=== PATIENT | male | born 1965 | race Caucasian/White ===

== ENCOUNTER 2021-02-05 08:14 | Emergency (ER) | payer MEDICARE, SELFPAY ==
[2021-02-05 08:27] VITALS: BP 129/80; PULSE 87; RESP 19; TEMP 38.3; O2SAT 94; BMI 30.8
[2021-02-05 08:33] VITALS: BP 129/80; PULSE 84; RESP 19; TEMP 38.3; O2SAT 95
--- NOTE | 2021-02-05 08:47 | ED_ITS ---
HPI - URI/Sore Throat General: Chief Complaint: Fever Stated Complaint: sinus problems Time Seen by Provider: 02/05/21 08:15 History of Present Illness: HPI Narrative: Patient complains about sinus pressure intermittent fever headache. Denies body aches cough loss of taste or smell. Has had an intermittent sore throat also. Has history of sinus infections and also receives allergy shots and weekly basis. Patient also has nausea. Patient has not been vaccinated to Covid. MD elicited complaint: fever, nasal congestion and sinus pain Pertinent past history: seasonal allergies Onset (ago): day(s) Consistency: constant and progressively worsening Severity: moderate Description of mucous: yellow Exacerbating factors: leaning forward Relieving factors: nothing Associated symptoms: Reports no associated symptoms, ear or mastoid pain, fever(s), nasal congestion and sinus pain; Deny abdominal pain, chills, chest pain, headache(s), nausea or vomiting Review of Systems Const: Reports: fever(s); Denies: chills or body aches Eyes: Denies: change in vision or blurry vision ENMT: Reports: throat pain, ear or mastoid pain, nasal congestion and sinus pain Card: Denies: chest pain or dyspnea on exertion Resp: Denies: dyspnea, productive cough or non-productive cough GI: Denies: abdominal pain, nausea or vomiting : Denies: difficulty urinating Musc: Denies: extremity pain Skin/Breast: Denies: rash Neuro: Denies: headache(s) Psych: Denies: anxiety or depression David/Lymph: Denies: easy bruising Physical Exam Const: COMMON NORMALS: no acute distress, average body habitus and patient oriented x3 HENMT: COMMON NORMALS: normocephalic HEAD & SCALP: normal to inspection and normocephalic FACE & SINUS: sinus tenderness maxillary THROAT: posterior oropharynx abnormal erythema Eye: COMMON NORMALS: conjunctivae normal GENERAL EYE: appearance normal, both eyes and all related structures CONJUNCTIVA: Yes conjunctivae normal Neck/C-Spine: COMMON NORMALS: no JVD Chest: COMMONS NORMALS: normal inspection of the chest Resp: COMMON NORMALS: normal respiratory effort and clear to auscultation bilaterally AUSCULTATION: clear to auscultation bilaterally Cardio: COMMON NORMALS: no JVD, regular rate and regular rhythm RATE: regular rate RHYTHM: regular rhythm GI: COMMON NORMALS: Normal to inspection, nondistended, normoactive bowel sounds present Extremity: COMMON NORMALS: normal to inspection and full ROM Neuro: COMMON NORMALS: patient oriented x3 Course Vital Signs: Vital signs: Vital Signs Temperature 100.5 F H 02/05/21 09:56 Pulse Rate 84 02/05/21 09:56 Respiratory Rate 19 H 02/05/21 09:56 Blood Pressure 125/80 02/05/21 09:56 Pulse Oximetry 94 02/05/21 09:56 MDM - URI/Sore Throat MDM Narrative: Medical decision making narrative: Patient positive for Covid. Patient appears to be toward the end of his symptoms been 9 days. Patient follow-up primary care provider as needed antibiotics started because of history of sinus infections may be complicating his Covid infection. Dexamethasone help with symptom control. Lab Data: Labs: Lab Results 02/05/21 02/05/21 Range/Units 08:43 08:57 WBC 3.4 L (4.0-10.0) 10^3/ uL RBC 5.17 (4.1-5.3) 10^6/u L Hgb 16.7 H (11.7-16.6) g/dL Hct 46.4 (42.0-52.0) % MCV 89.7 (80-94) fL MCH 32.3 (28.0-34.0) pg MCHC 36.0 (30.0-36.0) g/dL RDW 12.1 (12.1-15.1) % Plt Count 72 L (130-400) 10^3/c mm MPV 13.2 H (7.4-10.4) fL Neut % (Auto) 60.4 % Lymph % (Auto) 28.5 % Lake % (Auto) 10.2 % Eos % (Auto) 0.3 % Baso % (Auto) 0.0 % Neut # (Auto) 2.08 (1.8-7.7) 10^3/u L Lymph # (Auto) 1.0 (0.8-4.8) 10^3/u L Lake # (Auto) 0.4 (0.2-0.9) 10^3/u L Eos # (Auto) 0.0 (0.0-0.8) 10^3/u L Baso # (Auto) 0.0 (0.0-0.1) 10^3/u L Nucleated RBC % (a uto) 0 % Nucleated RBCs # 0.0 /100WBC SARS-CoV-2 Ag (Rap id) Positive H (Negative) Discharge Plan Discharge Patient Disposition: Home Clinical Impression: COVID-19 Condition: Stable Prescriptions: New Decadron 6 mg tablet 6 mg PO DAILY Qty: 7 RF: 0 Zithromax Z-Lew 250 mg tablet See Rx Instructions PO .COMPLEX Qty: 6 RF: 0 Zofran 4 mg tablet 4 mg PO Q8H 3 Days Qty: 9 RF: 0 No Action hydrocodone-acetaminophen 5-325 mg Tablet 1 tab PO Q6H PRN (Reason: Pain) RF: 0 Discharge Orders: Discharge ED (Routine); Ordered 02/05/21 Ordered By: Sammy Conley Referrals: Leeroy Olivarez FNP [Primary Care Provider] - Discharge Diet: Advance as tolerated Discharge Activity: Increase activity as tolerated Patient Instructions: Viral Syndrome (ED) Activity Restrictions/Additional Instructions: Follow-up with medical provider as directed. Take medications as prescribed. Return to the ER or your medical provider if condition worsens. Please read and understand discharge instructions. If any questions ask please. Quarantine for at least 3 more days. Coding Level of Care Code ED Program Manufacturing Leader for Sheryl Fwdevon Exam Comprehensive
[2021-02-05] MEDS: acetaminophen 500 mg Tablet 1000 MG PO (08:59)
[2021-02-05 09:27] LABS: Eosinophils % 0.3 %; Hematocrit 46.4 % (42.0-52.0); Hemoglobin 16.7 g/dL (11.7-16.6); Lymphocytes % 28.5 %; Mean Corpuscular Hemoglobin 32.3 pg (28.0-34.0); Mean Corpuscular Volume 89.7 fL (80-94); Mean Platelet Volume 13.2 fL (7.4-10.4); Monocytes # 0.4 10^3/uL (0.2-0.9); Monocytes % 10.2 %; Neutrophils # 2.08 10^3/uL (1.8-7.7); Neutrophils % 60.4 %; Nucleated Red Blood Cells % 0 %; Platelet Count 72 10^3/cmm (130-400); Red Blood Count 5.17 10^6/uL (4.1-5.3); Red Cell Distribution Width 12.1 % (12.1-15.1); White Blood Count 3.4 10^3/uL (4.0-10.0)
[2021-02-05 09:33] VITALS: BP 125/80; PULSE 93; RESP 19; TEMP 38.1; O2SAT 94
[2021-02-05 09:41] LABS: SARS Covid-2 Antigen Positive (Negative)
[2021-02-05 09:56] VITALS: BP 125/80; PULSE 84; RESP 19; TEMP 38.1; O2SAT 94
[2021-02-05 10:41] LABS: Slide Review Slide Review Perform
== END 2021-02-05 10:08 | disposition home or self-care (01) ==
PROVIDERS: Emergency Provider Nurse Practitioner Family; PCP Registered Nurse
DX: U07.1 COVID-19 (principal)
CPT/HCPCS: 85025; 87426; 99283

== ENCOUNTER 2025-04-09 16:36 | Observation (INO) | payer MEDICARE, SELFPAY ==
--- OUTSIDE RECORDS SUMMARY | 2025-04-09 09:56 | XMS_ITS | Encounter Summary ---
Author Organization [facility] Address [address] [place] [address] Care Team Providers Care Rabbler Name Role Phone Unavailable Primary Care Provider Unavailabl e Reason for Visit * Reason Comments Chest Pain Encounter Details Date Type Department Care Team (Late st Contact Info) Description 04/09/2025 9:56 AM CDT - 04/09/2025 3:56 PM CDT Emergency [facility] Emergency Medicine [address] [phone] Rivka Sheppard MD [address] [phone] NSTEMI (non-ST elevated myocardial infarction) ([facility]) (Primary Dx) Discharge Disposition: Left Against Medical Advice Social History Tobacco Use Types Packs/Day Years Used Date Smoking Tobacco: Never Smokeless Tobacco: Never Tobacco Cessation:Counseling Given: Not Answered Alcohol Use Standard Drinks/Week Comments Yes 1 (1 standard drink = 0.6 oz pur e alcohol) Feeling Safe Answer Date Recorded Are you in a relationship wi th someone who hurts you emotionally and/or physically? 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 Gender Identity Not on file Sexual Orientation Not on file documented as of this encounter Last Filed Vital Signs Vital Sign Reading Time Taken Comments Blood Pressure 161/89 04/09/2025 3:30 PM CDT Pulse 62 04/09/2025 3:30 PM CDT Temperature 36.3 C (97.4 F) 04/09/2025 9:57 AM CDT Respiratory Rate 13 04/09/2025 3:30 PM CDT Oxygen Saturation 100% 04/09/2025 3:30 PM CDT Inhaled Oxygen Concentration - - Weight 88.2 kg (194 lb 6.4 oz) 04/09/2025 9:57 A M CDT Height 177.8 cm (5' 10 ) 04/09/2025 9:57 AM CDT Body Mass Index 27.89 04/09/2025 9:57 AM CDT documented in this encounter ED Notes * Savannah Mayer RN - 04/09/2025 3:59 PM CDT Patient requested to leave this ER and drive himself to [facility] himself. This RN voiced understanding and educated the patient on the risk of leaving AMA. Patient states he understood the risk but was tired of the wait and it ws ridiculous. This RN voiced understanding and removed the patiens IV. Dr Sheppard informed of patients decision. Dispatch called and canceled transfer. CSU at [facility] called and updated nurses on patient event. * Delma Montalvo RN - 04/09/2025 2:04 PM CDT Dispatch called at this time for transfer. * Dahlia Yu RCP - 04/09/2025 12:23 PM CDT EKG completed. Results given to Dr. Sheppard and scanned into Epic. * Savannah Mayer RN - 04/09/2025 10:24 AM CDT Patient arrived to the ED via private vehicle complaining of chest tightness that radiates to hi back. Patient states he was relaxing at home and felt fine and decided to get up and move a large ladder and his chest pain hit him. Patient states he thinks he has congestion causing the issue and the pain increases with movement. Patient states the pain started 3 hours ago and his dad had a history of heart attacks and just wanted to get looked at. * Dahlia Yu RCP - 04/09/2025 9:58 AM CDT EKG completed. Results given to Dr. Sheppard and scanned into Epic. * Rivka Sheppard MD - 04/09/2025 9:55 AM CDTAssociated Order(s): EKG 12-LEAD; EKG 12-LEAD 04/09/25 12:00 PM HISTORY OF PRESENT ILLNESS History of Present Illness This is a male with a history of neck surgery presenting with chest tightness. The patient reports experiencing chest tightness that radiates to his back, which he initially attributed to congestion. The onset of these symptoms was sudden, occurring a few hours ago, and they have not been previously experienced. He also mentions mild shortness of breath and sweating when lifting a ladder. He is not currently experiencing any chest pressure but reports a sensation of tightness. He has no history of heart issues. He has a history of sinus infections, for which he takes Tylenol, and varicose veins, which were treated but persist. He has no recent injuries or bruising and does not bruise easily. He has not fallen in the past week. He occasionally takes hydrocodone for severe pain. PAST SURGICAL HISTORY: Neck surgery Knee injury (not surgically repaired) SOCIAL HISTORY He drinks beer almost every day. He does not smoke, use drugs, vape, or chew tobacco. FAMILY HISTORY His father had a history of three heart attacks. PAST MEDICAL HISTORY REVIEWED MEDICAL: Patient has a past medical history of Cervical spine fracture ([facility]). SURGICAL: Patient has a past surgical history that includes cervical spine surgery. ALLERGIES Patient has no known allergies. PHYSICAL EXAM INITIAL VS BP: (!) 188/93 (04/09/25 09), Heart Rate: 85 bpm (04/09/25 09), Resp: 20 (04/09/25956), Pulse: 75 (04/09/25 1045), Temp: 97.4 ??F (36.3 ??C) (04/09/25956), Temp src: Temporal (04/09/25956),SpO2: 99 % (04/09/25956), Height: 5' 10 (177.8 cm) (04/09/25956), Weight: 88.2 kg (194 lb 6.4 oz) (04/09/25956), BMI (Calculated): (!) 27.9 (04/09/25956) No LMP for male patient. Blood pressure (!) 170/90, pulse 65, temperature 97.4 ??F (36.3 ??C), temperature source Temporal, resp. rate 17, height 5' 10 (1.778 m), weight 88.2 kg (194 lb 6.4 oz), SpO2 99%. Physical Exam Vitals and nursing note reviewed. Constitutional: General: He is in acute distress. Appearance: Normal appearance. He is well-developed and normal weight. He is ill-appearing. HENT: Head: Normocephalic. Mouth/Throat: Mouth: Mucous membranes are moist. Eyes: Extraocular Movements: Extraocular movements intact. Conjunctiva/sclera: Conjunctivae normal. Pupils: Pupils are equal, round, and reactive to light. Neck: Vascular: No JVD. Cardiovascular: Rate and Rhythm: Normal rate and regular rhythm. Pulses: Normal pulses. Radial pulses are 2+ on the right side and 2+ on the left side. Heart sounds: Normal heart sounds. No murmur heard. Pulmonary: Effort: Pulmonary effort is normal. No respiratory distress. Breath sounds: Normal breath sounds. No wheezing or rhonchi. Chest: Chest wall: No tenderness. Abdominal: Palpations: Abdomen is soft. Musculoskeletal: General: Normal range of motion. Cervical back: Normal range of motion and neck supple. Right lower leg: No tenderness. No edema. Left lower leg: No tenderness. No edema. Lymphadenopathy: Cervical: No cervical adenopathy. Skin: General: Skin is warm and dry. Capillary Refill: Capillary refill takes less than 2 seconds. Coloration: Skin is not cyanotic or pale. Findings: No erythema. Neurological: General: No focal deficit present. Mental Status: He is alert and oriented to person, place, and time. Mental status is at baseline. Cranial Nerves: No cranial nerve deficit. Psychiatric: Mood and Affect: Mood normal. Behavior: Behavior normal. DIAGNOSTICS LAB: CBC WITH DIFFERENTIAL - Abnormal Result Value WBC 6.7 RBC 4.61 (*) HEMOGLOBIN 14.8 HEMATOCRIT 42.1 MCV 91.3 MCH 32.1 MCHC 35.2 RDW 12.5 RDW-STDEV 41.8 PLATELETS 142 MPV 10.6 NEUTROPHILS 62 LYMPHOCYTES 25 MONOCYTES 11 EOSINOPHILS 2 BASOPHILS 1 IMMATURE GRANULOCYTES 0 NEUTROPHIL ABSOLUTE 4.12 LYMPHOCYTE ABSOLUTE 1.64 MONOCYTE ABSOLUTE 0.71 EOSINOPHIL ABSOLUTE 0.13 BASOPHILS ABSOLUTE 0.06 IMMATURE GRANULOCYTES ABSOLUTE 0.03 D-DIMER - Abnormal D-DIMER QUANT 0.91 (*) COMPREHENSIVE METABOLIC PANEL - Abnormal SODIUM 139 POTASSIUM 3.9 CHLORIDE 101 CO2 25 CALCIUM 9.7 BUN 16 CREATININE 0.85 GLUCOSE 137 (*) TOTAL PROTEIN 7.7 ALBUMIN 4.6 BILIRUBIN TOTAL 0.8 ALKALINE PHOSPHATASE 81 AST 78 (*) ALT 77 (*) GFR >60 ANION GAP 13 TROPONIN 2 HR, 5TH GEN - Abnormal TROPONIN T, 2 HR 5TH GEN 28 (*) DELTA 2HR TROPONIN T 15 (*) PROTIME-INR - Normal PROTIME 13.1 INR 1.0 SEDIMENTATION RATE - Normal ESR (SEDIMENTATION RATE) 6 BRAIN NATRIURETIC PEPTIDE, BNP OR PROBNP - Normal PROBNP, N TERMINAL 95 LIPASE - Normal LIPASE 60 LACTIC ACID - Normal LACTIC ACID 1.3 C-REACTIVE PROTEIN - Normal CRP <3.0 MAGNESIUM LEVEL - Normal MAGNESIUM 2.0 TSH - Normal TSH 1.96 TROPONIN BASELINE, 5TH GEN - Normal TROPONIN T, BASELINE 5TH GEN 13 URINALYSIS WITH REFLEX MICROSCOPIC DRUG SCREEN, URINE CBC WITHOUT DIFFERENTIAL RADIOLOGY: XR CHEST PA OR AP 1 VW Radiologist Impression IMPRESSION: Please see below. Exam: XR CHEST PA OR AP 1 VW Date/Time of Exam: 04/09/2025 10:28 AM Reason For Exam: Chest Pain. Diagnosis: See Reason for Exam. Comparison: None Findings: The heart size is normal. The lungs are clear. No pleural fluid or pneumothorax. No acute osseous abnormality. IMPRESSION: 1. No infiltrates. EKG: Results Laboratory Studies Blood test showed slight elevation. Liver function tests indicate some inflammation. D-dimer test was elevated. Imaging Chest x-ray showed normal heart size, clear lungs, no fluid around the lungs, and no abnormality inthe bones of the chest. Testing EKG showed abnormalities. Results independently interpreted by Rivka Sheppard MD PROCEDURES EKG 12-LEAD Date/Time: 04/09/2025 9:58 AM Performed by: Rivka Sheppard MD Authorized by: Rivka Sheppard MD ECG interpreted by ED Physician in the absence of a plaster patternmaker: yes Rate: ECG rate: 82 ECG rate assessment: age appropriate Rhythm: Rhythm Origin: sinus Ectopy: Ectopy occurance: occasional Ectopy origin: PVCs Willard: QRS axis: Left Intervals: normal QRSTT: QRSTT changes: Yes Comments: T wave inversion in lead III. No ST segment elevation/depression. EKG 12-LEAD Date/Time: 04/09/2025 12:23 PM Performed by: Rivka Sheppard MD Authorized by: Rivka Sheppard MD ECG interpreted by ED Physician in the absence of a plaster patternmaker: yes Rate: ECG rate: 62 ECG rate assessment: age appropriate Rhythm: Rhythm Origin: sinus Willard: QRS axis: Left Intervals: normal QRSTT: QRSTT changes: Yes Comments: Changes now in lead III, aVF and lead V6 with T wave inversions. No ST segment elevation or depression. MEDICAL DECISION MAKING AND PLAN OF CARE Assessment & Plan Initial Assessment: Chest tightness radiating to the back, possibly related to congestion. No history of similar symptoms. Family history of heart attacks. Differential Diagnosis: - Heart attack: EKG abnormalities, elevated blood work. Further evaluation with cardiology. - Musculoskeletal chest pain: No pain on palpation, no reproducible pain with movement. Unlikely. - Pulmonary embolism: Elevated D-dimer, no leg swelling or pain. - Liver inflammation: Daily beer consumption, occasional Tylenol use. Ultrasound to assess liver. ED Course: - Blood drawn - Chest x-ray: Normal heart size, clear lungs, no fluid, no chest bone abnormalities - EKG performed - Blood work: Slight elevation - D-dimer test: Elevated, but likely due to potential liver disease. - Consulted enrollment management vice president Final Assessment: Chest tightness with radiating pain, possible mild heart attack. Elevated D- dimer and liver inflammation noted. Normal chest x-ray. Blood work and EKG abnormalities suggest further cardiology evaluation needed. Started patient with Aspirin 324mg chewable and after discussing the case with art therapy specialist with review of EKG, determined that patient would benefit with starting heparin drip and transfer for further Cardiology evaluation. Clinical Impression: - Mild heart attack - Liver inflammation Disposition: - Transfer: To [facility] for further cardiology evaluation, Patient is accepted for admission to [facility]. Medical Decision Making Amount and/or Complexity of Data Reviewed Labs: ordered. Radiology: ordered. ECG/medicine tests: ordered. Risk OTC drugs. Prescription drug management. MDM Willie' Criteria for Pulmonary Embolism: Clinical signs and symptoms of DVT: no PE is #1 diagnosis, or equally likely: No Heart rate >100: No Immobilization at least 3 days, or surgery in the previous 4 weeks: No Previous, objectively diagnosed PE or DVT: No Hemoptysis: No Malignancy w/ treatment within 6 mo, or palliative: No WELLS PE score is: 0 Medications Administered During the ED Stay from 04/09/2025 0955 to 04/09/2025 1334 Date/Time Order Dose Route Action 04/09/2025 1027 CDT aspirin (CONSTANTIN CHEWABLE) chewable tablet 324 mg 324 mg Oral Refused 04/09/2025 1307 CDT heparin injection 4,000 Units 4,000 Units IV Given 04/09/2025 1310 CDT heparin in 0.45% NaCl 25,000 unit/250 mL infusion 11.3 Units/kg/hr IV New Bag . LAST VS BP: (!) 170/90 (04/09/251314), Heart Rate: 65 bpm (04/09/251314), Resp: 17 (04/09/251314), Pulse: 65 (04/09/251314), Temp: 97.4 ??F (36.3 ??C) (04/09/25956), Temp src: Temporal (04/09/25956),SpO2: 99 % (04/09/251314) CLINICAL IMPRESSION Diagnosis Diagnosis Comment Added By Time Added NSTEMI (non-ST elevated myocardial infarction) ([facility]) [I21.4] Rivka Sheppard MD 04/09/2025 1:04 PM DISPOSITION, EDUCATION AND MEDICATION RECONCILIATION Medications reconciled. See after visit summary for patient education on discharged patients. ED Disposition ED Disposition Transfer Condition Stable User Rivka Sheppard MD Date/Time Betty Apr 09, 2025 1:04 PM Comment -- documented in this encounter Plan of Treatment Scheduled Orders Name Type Priority Associated Diagnoses Orde r Schedule TROPONIN 6 HR, 5TH GEN Lab Timed Study O NE TIME for 1 Occurrences starting 04/09/2025 until 04/09/2025 URINALYSIS WITH REFLEX MICROSCOPIC Lab Stat ONE TIME COLLECT NOW for 1 Occurrences starting 04/09/2025 until 04/09/2025 DRUG SCREEN, URINE Lab Stat ONE TI ME COLLECT NOW for 1 Occurrences starting 04/09/2025 until 04/09/2025 CBC WITHOUT DIFFERENTIAL Lab Routine EVERY SEVENTY-TWO HOURS until discontinued starting 04/09/2025 documented as of this encounter Procedures Procedure Name Priority Date/Time Associated Diagnosis Comments EKG 12-LEAD Stat 04/09/2025 12:23 PM CDT TROPONIN 2 HR, 5TH GEN Timed Study 04/09/2025 11:39 AM CDT XR CHEST PA OR AP 1 VW Stat 04/09/2025 10:28 AM CDT TROPONIN BASELINE, 5TH GEN Stat 04/09/2025 10:00 AM CDT LACTIC ACID Stat 04/09/2025 10:00 AM CDT CBC WITH DIFFERENTIAL Stat 04/09/2025 10:00 AM CDT SEDIMENTATION RATE Stat 04/09/2025 10 :00 AM CDT PROTIME-INR Stat 04/09/2025 10:00 AM CDT D-DIMER Stat 04/09/2025 10:00 AM CDT C-REACTIVE PROTEIN Stat 04/09/2025 10 :00 AM CDT TSH Stat 04/09/2025 10:00 AM CDT BRAIN NATRIURETIC PEPTIDE, BNP OR PROBNP Stat 04/09/2025 10:00 AM CDT MAGNESIUM LEVEL Stat 04/09/2025 10:00 AM CDT LIPASE Stat 04/09/2025 10:00 AM CDT COMPREHENSIVE METABOLIC PANEL Stat 04/09/2025 10:00 AM CDT EKG 12-LEAD Stat 04/09/2025 9:58 AM CDT documented in this encounter Results * EKG 12-LEAD (04/09/2025 12:23 PM CDT) Narrative Rivka Sheppard MD - 04/09/2025 12:23 PM CDT Rivka Sheppard MD 04/09/2025 1:34 PM EKG 12-LEAD Date/Time: 04/09/2025 12:23 PM Performed by: Rivka Sheppard MD Authorized by: Rivka Sheppard MD ECG interpreted by ED Physician in the absence of a plaster patternmaker: yes Rate: ECG rate: 62 ECG rate assessment: age appropriate Rhythm: Rhythm Origin: sinus Willard: QRS axis: Left Intervals: normal QRSTT: QRSTT changes: Yes Comments: Changes now in lead III, aVF and lead V6 with T wave inversions. No ST segment elevation or depression. Rivka Sheppard MD ECG ORDERABLES Final Result * (ABNORMAL) TROPONIN 2 HR, 5TH GEN (04/09/2025 11:39 AM CDT) TROPONIN T, 2 HR 5TH GEN 28(H) <=15 ng/L 04/09/2025 12:07 PM CDT [facility] DELTA 2HR TROPONIN T 15(HH) See Interp. 04/09/2025 12:07 PM CDT [facility] Blood BLOOD SPECIMEN / Unknown Collection / Unknown 04/09/2025 11:39 AM CDT 04/09/2025 11:44 AM CDT Narrative [facility] - 04/09/2025 12:07 PM CDT Troponin elevated. Delay in collection of timed specimen beyond recommended collection interval. Results must be interpreted in clinical context. Delta significant change. us Rivka Sheppard MD CHEMISTRY ORDERABLES Final Resu lt [facility] CLIA # [id number] [address] [place] [address] * XR CHEST PA OR AP 1 VW (04/09/2025 10:28 AM CDT) Anatomical Region Laterality Modality Chest Computed Radiogr aphy 04/09/2025 10:2 8 AM CDT Impressions 04/09/2025 11:10 AM CDT IMPRESSION: Please see below. Exam: XR CHEST PA OR AP 1 VW Date/Time of Exam: 04/09/2025 10:28 AM Reason For Exam: Chest Pain. Diagnosis: See Reason for Exam. Comparison: None Findings: The heart size is normal. The lungs are clear. No pleural fluid or pneumothorax. No acute osseous abnormality. IMPRESSION: 1. No infiltrates. Narrative Procedure Note Chester Ness MD - 04/09/2025 IMPRESSION: Please see below. Exam: XR CHEST PA OR AP 1 VW Date/Time of Exam: 04/09/2025 10:28 AM Reason For Exam: Chest Pain. Diagnosis: See Reason for Exam. Comparison: None Findings: The heart size is normal. The lungs are clear. No pleural fluid or pneumothorax. No acute osseous abnormality. IMPRESSION: 1. No infiltrates. us Rivka Sheppard MD DIAGNOSTIC IMAGING ORDERABLES F inal Result * TROPONIN BASELINE, 5TH GEN (04/09/2025 10:00 AM CDT) TROPONIN T, BASELINE 5TH GEN 13 <=15 ng/L 04/09/2025 10:31 AM CDT [facility] Blood Collection / Unknown 04/09/2025 10:00 AM CDT 04/09/2025 10:14 AM CDT Narrative [facility] - 04/09/2025 10:31 AM CDT Troponin Detectable but normal range. us Rivka Sheppard MD CHEMISTRY ORDERABLES Final Resu lt Performing Organization Address City/[facility]/ZIP Co de Phone Number [facility] CLIA # [id number] [address] [place] [address] * TSH (04/09/2025 10:00 AM CDT) TSH 1.96 0.27 - 4.20 uIU/mL 04/09/2025 10:38 AM CDT [facility] Blood Collection / Unknown 04/09/2025 10:00 AM CDT 04/09/2025 10:14 AM CDT us Rivka Sheppard MD CHEMISTRY ORDERABLES Final Resu lt Performing Organization Address [facility]/ZIP Co de Phone Number [facility] CLIA # [id number] [address] [place] [address] * MAGNESIUM LEVEL (04/09/2025 10:00 AM CDT) MAGNESIUM 2.0 1.6 - 2.4 mg/dL 04/09/2025 10:38 AM CDT [facility] Blood Collection / Unknown 04/09/2025 10:00 AM CDT 04/09/2025 10:14 AM CDT us Rivka Sheppard MD CHEMISTRY ORDERABLES Final Resu lt Performing Organization Address City/[facility]/ZIP Co de Phone Number [facility] CLIA # [id number] [address] [place] [address] * C-REACTIVE PROTEIN (04/09/2025 10:00 AM CDT) CRP <3.0 <5.0 mg/L 04/09/2025 10:38 AM CDT [facility] Blood Collection / Unknown 04/09/2025 10:00 AM CDT 04/09/2025 10:14 AM CDT us Rivka Sheppard MD CHEMISTRY ORDERABLES Final Resu lt Performing Organization Address [facility]/ZIP Co de Phone Number [facility] CLIA # [id number] [address] [place] [address] * LACTIC ACID (04/09/2025 10:00 AM CDT) LACTIC ACID 1.3 <=2.0 mmol/L 04/09/2025 10:28 AM CDT [facility] Blood BLOOD SPECIMEN / Unknown Collection / Unknown 04/09/2025 10:00 AM CDT 04/09/2025 10:14 AM CDT us Rivka Sheppard MD CHEMISTRY ORDERABLES Final Resu lt Performing Organization Address [facility] [place] Phone Number [facility] CLIA # [id number] [address] [place] [address] * LIPASE (04/09/2025 10:00 AM CDT) LIPASE 60 13 - 60 U/L 04/09/2025 10:38 AM CDT [facility] Blood Collection / Unknown 04/09/2025 10:00 AM CDT 04/09/2025 10:14 AM CDT us Rivka Sheppard MD CHEMISTRY ORDERABLES Final Resu lt Performing Organization Address [facility] Co de Phone Number [facility] CLIA # [id number] [address] [place] [address] * BRAIN NATRIURETIC PEPTIDE, BNP OR PROBNP (04/09/2025 10:00 AM CDT) PROBNP, N TERMINAL 95 0 - 125 pg/mL 04/09/2025 10:31 AM CDT [facility] Comment: INTERPRETIVE COMMENT based on diagnosis: Diagnostic NT pro-BNP cutoffs for Heart Failure in the absence of renal failure is suggested for the following ranges <75 years: <125 pg/mL >=75 years: <450 pg/mL Exclusionary rule out cut-point for Acute Decompensated Heart Failure(ADHF) All ages: <300 pg/mL Diagnostic NT pro-BNP cutoffs for Acute Decompensated Heart Failure(ADHF) in the absence of renal failure is suggested for the following ages <50 years: > 450 pg/mL 50-75 years: > 900 pg/mL >75 years: >1800 pg/mL Blood Collection / Unknown 04/09/2025 10:00 AM CDT 04/09/2025 10:14 AM CDT us Rivka Sheppard MD CHEMISTRY ORDERABLES Final Resu lt [facility] CLIA # [id number] [address] [place] [address] * (ABNORMAL) COMPREHENSIVE METABOLIC PANEL (04/09/2025 10:00 AM CDT) SODIUM 139 136 - 145 mmol/L 04/09/2025 10:38 AM [facility] POTASSIUM 3.9 3.5 - 5.1 mmol/L 04/09/2025 10:38 AM [facility] CHLORIDE 101 98 - 107 mmol/L 04/09/2025 10:38 AM [facility] CO2 25 22 - 29 mmol/L 04/09/2025 10:38 AM [facility] CALCIUM 9.7 8.8 - 10.2 mg/dL 04/09/2025 10:38 AM [facility] BUN 16 8 - 23 mg/dL 04/09/2025 10:38 AM [facility] CREATININE 0.85 0.67 - 1.17 mg/dL 04/09/2025 10:38 AM [facility] GLUCOSE 137(H) 74 - 99 mg/dL 04/09/2025 10:38 AM [facility] TOTAL PROTEIN 7.7 6.6 - 8.7 g/dL 04/09/2025 10:38 AM [facility] ALBUMIN 4.6 3.5 - 5.2 g/dL 04/09/2025 10:38 AM [facility] BILIRUBIN TOTAL 0.8 0.0 - 1.2 mg/dL 04/09/2025 10:38 AM [facility] ALKALINE PHOSPHATASE 81 40 - 129 U/L 04/09/2025 10:38 AM [facility] AST 78(H) 0 - 50 U/L 04/09/2025 10:38 AM [facility] ALT 77(H) 0 - 50 U/L 04/09/2025 10:38 AM [facility] GFR >60 >=60 mL/min/1.7 3 sq meter 04/09/2025 10:38 AM [facility] Comment:eGFR calculated with 2020 CKD-EPI equation. Vegetarian diet, extremely high or low muscle mass, and may affect results. Cystatin C with Glomerular Filtration Rate is a suitable alternative for these patients. ANION GAP 13 5 - 20 mmol/L 04/09/2025 10:38 AM [facility] Blood Collection / Unknown 04/09/2025 10:00 AM CDT 04/09/2025 10:14 AM CDT us Rivka Sheppard MD CHEMISTRY ORDERABLES Final Resu lt [facility] CLIA # [id number] [address] [place] [phone] * (ABNORMAL) D-DIMER (04/09/2025 10:00 AM CDT) D-DIMER QUANT 0.91(H) <0.50 ug/mL FEU 04/09/2025 10:28 AM [facility] Blood Collection / Unknown 04/09/2025 10:00 AM CDT 04/09/2025 10:14 AM CDT Narrative [facility] - 04/09/2025 10:28 AM CDT D-Dimer assay cutoff value for exclusion of DVT and/or PE is <0.50 ug/mL FEU. As D-Dimer levels increase naturally with age, age stratification for patients over 50 is potentially more appropriate in determining whether a patient should undergo further evaluation for DVT and/or PE than a general cutoff of 0.50 ug/mL FEU. Clinical consideration is recommended. Age Stratified Cutoff Values: 50-60 years: 0.50-0.60 ug/mL FEU 61-70 years: 0.61-0.70 ug/mL FEU 71-80 years: 0.71-0.80 ug/mL FEU Rivka Sheppard MD HEMATOLOGY ORDERABLES Final Res ult Performing Organization Address [facility] Co de Phone Number [id number] [address] [place] [address] * SEDIMENTATION RATE (04/09/2025 10:00 AM CDT) ESR (SEDIMENTATION RATE) 6 0 - 20 mm/Hr 04/09/2025 10:29 AM CDT [facility] Blood Collection / Unknown 04/09/2025 10:00 AM CDT 04/09/2025 10:14 AM CDT Narrative [facility] - 04/09/2025 10:29 AM CDT Tube Lot: #[id number] Exp Date: 07/15/2026 QC1 LOT [id number] EXP.07/20/2025 QC2 LOT [id number] EXP.07/20/2025 Rivka Sheppard MD HEMATOLOGY ORDERABLES Final Res ult Performing Organization Address [facility]/ZIP Co de Phone Number [facility] CLIA # [id number] [address] [place] [address] * PROTIME-INR (04/09/2025 10:00 AM CDT) PROTIME 13.1 12.1 - 14.3 Seconds 04/09/2025 12:33 PM CDT [facility] Comment:This is a corrected result. Previous result was 17.8 Seconds on 04/09/2025 at 1140 CDT INR 1.0 0.9 - 1.1 04/09/2025 12:33 PM CDT [facility] Comment:This is a corrected result. Previous result was 1.5 on 04/09/2025 at 1140 CDT Blood Collection / Unknown 04/09/2025 10:00 AM CDT 04/09/2025 10:14 AM CDT Narrative [facility] - 04/09/2025 12:33 PM CDT Called corrected report to Dr Sheppard @ 12:31 on 04-09-25.cjb us Rivak Sheppard MD HEMATOLOGY ORDERABLES Edited Re sult - Final [facility] CLIA # [id number] [address] [place] [address] * (ABNORMAL) CBC WITH DIFFERENTIAL (04/09/2025 10:00 AM CDT) WBC 6.7 4.2 - 9.1 K/uL 04/09/2025 10:18 AM [facility] RBC 4.61(L) 4.63 - 6.08 M/uL 04/09/2025 10:18 AM [facility] HEMOGLOBIN 14.8 13.7 - 17.5 g/dL 04/09/2025 10:18 AM T [facility] HEMATOCRIT 42.1 40.1 - 51.0 % 04/09/2025 10:18 AM [facility] MCV 91.3 79.0 - 92.2 fL 04/09/2025 10:18 AM [facility] MCH 32.1 25.7 - 32.2 pg 04/09/2025 10:18 AM [facility] MCHC 35.2 32.3 - 36.5 g/dL 04/09/2025 10:18 AM [facility] RDW 12.5 11.0 - 14.5 % 04/09/2025 10:18 AM [facility] RDW-STDEV 41.8 36.9 - 56.9 fL 04/09/2025 10:18 AM [facility] PLATELETS 142 130 - 400 K/uL 04/09/2025 10:18 AM [facility] MPV 10.6 10.0 - 14.8 fL 04/09/2025 10:18 AM [facility] NEUTROPHILS 62 34 - 68 % 04/09/2025 10:18 AM [facility] LYMPHOCYTES 25 22 - 53 % 04/09/2025 10:18 AM [facility] MONOCYTES 11 5 - 12 % 04/09/2025 10:18 AM [facility] EOSINOPHILS 2 1 - 7 % 04/09/2025 10:18 AM [facility] BASOPHILS 1 0 - 1 % 04/09/2025 10:18 AM [facility] IMMATURE GRANULOCYTES 0 % 04/09/2025 10:18 AM [facility] NEUTROPHIL ABSOLUTE 4.12 1.78 - 5.38 K/uL 04/09/2025 10:18 AM [facility] LYMPHOCYTE ABSOLUTE 1.64 1.20 - 3.40 K/uL 04/09/2025 10:18 AM [facility] MONOCYTE ABSOLUTE 0.71 0.30 - 0.82 K/uL 04/09/2025 10:18 AM [facility] EOSINOPHIL ABSOLUTE 0.13 0.04 - 0.54 K/uL 04/09/2025 10:18 AM [facility] BASOPHILS ABSOLUTE 0.06 0.01 - 0.08 K/uL 04/09/2025 10:18 AM [facility] IMMATURE GRANULOCYTES ABSOLUTE 0.03 K/uL 04/09/2025 10:18 AM [facility] Blood Collection / Unknown 04/09/2025 10:00 AM CDT 04/09/2025 10:14 AM T Rivka Sheppard MD HEMATOLOGY ORDERABLES Final Res ult [facility] # [id number] [address] [place] [address] * EKG 12-LEAD (04/09/2025 9:58 AM CDT) Narrative Rivka Sheppard MD - 04/09/2025 9:58 AM CDT Rivka Sheppard MD 04/09/2025 1:34 PM EKG 12-LEAD Date/Time: 04/09/2025 9:58 AM Performed by: Rivka Sheppard MD Authorized by: Rivka Sheppard MD ECG interpreted by ED Physician in the absence of a plaster patternmaker: yes Rate: ECG rate: 82 ECG rate assessment: age appropriate Rhythm: Rhythm Origin: sinus Ectopy: Ectopy occurance: occasional Ectopy origin: PVCs Willard: QRS axis: Left Intervals: normal QRSTT: QRSTT changes: Yes Comments: T wave inversion in lead III. No ST segment elevation/depression. Rivka Sheppard MD ECG ORDERABLES Final Result documented in this encounter Visit Diagnoses Diagnosis NSTEMI (non-ST elevated myocardial infarction) (CMS/HCC)- Primary Acute myocardial infarction, subendocardial infarction, episode of care unspecified NSTEMI (non-ST elevated myocardial infarction) (CMS/HCC) Acute myocardial infarction, subendocardial infarction, episode of care unspecified documented in this encounter Administered Medications Active Administered Medications - up to 3 most recent administrations Medication Order MAR Action Action Date Dose Rate Site heparin in 0.45% NaCl 25,000 unit/250 mL infusion 11.3 Units/kg/hr 88.2 kg (9.9666 mL/hr, rounded to 10 mL/hr), IV, TITRATE, Starting on Betty 04/09/25 at 1300, Until Discontinued, Indication: ACS/STEMI, Dosing by: PER PROTOCOL: Delegate to facility protocol per indication, Re-bolus within Protocol? No, titrate infusion ONLY New Bag 04/09/2025 1:10 PM CDT 11.3 Units/kg/hr 10 mL/hr sodium chloride flush injection 10 mL 10 mL, IV, EVERY 12 HOURS (BlD), First dose on Betty 04/09/25 at 1015, Until Discontinued, Routine sodium chloride flush injection 10 mL 10 mL, IV, SEE ADMIN INSTRUCTIONS, Starting on Betty 04/09/25 at 1007, Until Discontinued, Routine Inactive Administered Medications - up to 3 most recent administrations Medication Order MAR Action Action Date Dose Rate Site heparin injection 4,000 Units 4,000 Units, IV, ONE TIME ONLY, 1 dose, On Betty 04/09/25 at 1300, StatIndications:ACS/STEMI Given 04/09/2025 1:07 PM CDT 4,000 Units documented in this encounter Active and Recently Administered Medications Times are shown in CDT. Scheduled Medication Order 04/07/2025 04/08/2025 04/09/2025 aspirin (CONSTANTIN CHEWABLE) chewable tablet 324 mg 324 mg, Oral, ONE TIME ONLY, 1 dose, On Betty 04/09/25 at 1015, Routine 1027 (Refused - Prov ider: Savannah Mayer RN) heparin injection 4,000 Units (COMPLETED) 4,000 Units, IV, ONE TIME ONLY, 1 dose, On Betty 04/09/25 at 1300, Stat 1307 (Given - Provid er: Savannah Mayer RN) sodium chloride flush injection 10 mL 10 mL, IV, EVERY 12 HOURS (BlD), First dose on Betty 04/09/25 at 1015, Until Discontinued, Routine 1015 (Due)2100 (Due) sodium chloride flush injection 10 mL 10 mL, IV, SEE ADMIN INSTRUCTIONS, Starting on Betty 04/09/25 at 1007, Until Discontinued, Routine Continuous Medication Order 04/07/2025 04/08/2025 04/09/2025 heparin in 0.45% NaCl 25,000 unit/250 mL infusion 11.3 Units/kg/hr 88.2 kg (9.9666 mL/hr, rounded to 10 mL/hr), IV, TITRATE, Starting on Betty 04/09/25 at 1300, Until Discontinued, Indication: ACS/STEMI, Dosing by: PER PROTOCOL: Delegate to facility protocol per indication, Re-bolus within Protocol? No, titrate infusion ONLY 1310 (New Bag - Prov ider: Savannah Mayer RN) documented in this encounter
--- OUTSIDE RECORDS SUMMARY | 2025-04-09 09:56 | XMS_ITS | Encounter Summary ---
Author Organization [facility] Address [address] [place] [address] Care Team Providers Care Refund Clerk Name Role Phone Unavailable Primary Care Provider Unavailabl e Reason for Visit * Reason Comments Chest Pain Encounter Details Date Type Department Care Team (Late st Contact Info) Description 04/09/2025 9:56 AM CDT - 04/09/2025 3:56 PM CDT Emergency [facility] Emergency Medicine [address] [phone] Rivka Sheppard MD [address] [phone] NSTEMI (non-ST elevated myocardial infarction) ([facility]) (Primary Dx) Discharge Disposition: Left Against [...] on file 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 This RN voiced understanding and educated the patient on the risk of leaving AMA. Patient states he understood the risk but was tired of the wait and it ws ridiculous. This RN voiced understanding and removed the patiens IV. Dr Sheppard informed of patients decision. Dispatch called and canceled transfer. CSU at [facility] called and updated nurses on patient event. [...] past medical history of Cervical spine fracture ([facility]). SURGICAL: Patient has a past surgical [...] ED Physician in the absence of a pr specialist: yes Rate: ECG rate: 82 ECG rate assessment: age appropriate Rhythm: Rhythm Origin: sinus Ectopy: Ectopy occurance: occasional Ectopy origin: PVCs Central: QRS axis: Left Intervals: normal QRSTT: QRSTT changes: Yes Comments: T wave inversion in lead III. No ST segment elevation/depression. EKG 12-LEAD Date/Time: 04/09/2025 12:23 PM Performed by: Rivka Sheppard MD Authorized by: Rivka Sheppard MD ECG interpreted by ED Physician in the absence of a pr specialist: yes Rate: ECG rate: 62 ECG rate assessment: age appropriate Rhythm: Rhythm Origin: sinus Central: QRS axis: Left Intervals: normal QRSTT: QRSTT [...] due to potential liver disease. - Consulted auto customize painter Final Assessment: Chest tightness with radiating pain, possible mild heart attack. Elevated D- dimer and liver inflammation noted. Normal chest x-ray. Blood work and EKG abnormalities suggest further cardiology evaluation needed. Started patient with Aspirin 324mg chewable and after discussing the case with customer engineering specialist with review of EKG, determined that patient would benefit with starting heparin drip and transfer for further Cardiology evaluation. Clinical Impression: - Mild heart attack - Liver inflammation Disposition: - Transfer: To [facility] for further cardiology evaluation, Patient is accepted for admission to [facility]. Medical Decision Making Amount and/or Complexity of [...] Time Added NSTEMI (non-ST elevated myocardial infarction) ([facility]/HCC) [I21.4] Rivka Sheppard MD 04/09/2025 1:04 PM DISPOSITION, EDUCATION AND MEDICATION RECONCILIATION Medications reconciled. See after visit summary for patient education on discharged patients. ED Disposition ED Disposition Transfer Condition Stable User Rivka Sheppard MD Date/Time Betty Apr 09, 2025 1:04 PM Comment -- documented in this encounter Plan of Treatment Not on file documented as of this encounter Procedures Procedure [...] ED Physician in the absence of a pr specialist: yes Rate: ECG rate: 62 ECG rate assessment: age appropriate Rhythm: Rhythm Origin: sinus Central: QRS axis: Left Intervals: normal QRSTT: QRSTT changes: Yes Comments: Changes now in lead III, aVF and lead V6 with T wave inversions. No ST segment elevation or depression. Rivka Sheppard MD ECG ORDERABLES Final Result * (ABNORMAL) TROPONIN 2 HR, 5TH GEN (04/09/2025 11:39 AM CDT) TROPONIN T, 2 HR 5TH GEN 28(H) <=15 ng/L 04/09/2025 12:07 PM CDT [facility] DELTA 2HR TROPONIN T 15(HH) See Interp. 04/09/2025 12:07 PM CDT [facility] Blood BLOOD SPECIMEN / Unknown Collection / Unknown 04/09/2025 11:39 AM CDT 04/09/2025 11:44 AM CDT Narrative [facility] - 04/09/2025 12:07 PM CDT Troponin elevated. Delay in collection of timed specimen beyond recommended collection interval. Results must be interpreted in clinical context. Delta significant change. Rivka Sheppard MD CHEMISTRY ORDERABLES Final [facility]u lt [facility] [id number] [address] [place] [address] [id number] * XR CHEST PA OR AP 1 [...] 1. No infiltrates. Narrative Procedure Note Chester eNss MD - 04/09/2025 IMPRESSION: Please see below. [...] 13 <=15 ng/L 04/09/2025 10:31 AM CDT [facility] Blood Collection / Unknown 04/09/2025 10:00 AM CDT 04/09/2025 10:14 AM CDT Narrative [facility] - 04/09/2025 10:31 AM CDT Troponin Detectable but normal range. us Rivka Sheppard MD CHEMISTRY ORDERABLES Final Resu lt [facility] CLIA # [id number] [address] [place] [address] * TSH (04/09/2025 10:00 AM CDT) TSH 1.96 0.27 - 4.20 uIU/mL 04/09/2025 10:38 AM CDT [facility] Blood Collection / Unknown 04/09/2025 10:00 AM CDT 04/09/2025 10:14 AM CDT us Rivka Sheppard MD CHEMISTRY ORDERABLES Final Resu lt Performing Organization Address City/[facility]/ZIP Co de Phone Number [facility] CLIA # [id number] [address] [place] [address]87 * MAGNESIUM LEVEL (04/09/2025 10:00 AM CDT) MAGNESIUM 2.0 1.6 - 2.4 mg/dL 04/09/2025 10:38 AM CDT [facility] Blood Collection / Unknown 04/09/2025 10:00 AM CDT 04/09/2025 10:14 AM CDT us Rivka Sheppard MD CHEMISTRY ORDERABLES Final Resu lt Performing Organization Address [facility] [facility]/ZIP Co de Phone Number [facility] CLIA # [id number] [address] [place] [address] * C-REACTIVE PROTEIN (04/09/2025 10:00 AM CDT) CRP <3.0 <5.0 mg/L 04/09/2025 10:38 AM CDT [facility] Blood Collection / Unknown 04/09/2025 10:00 AM CDT 04/09/2025 10:14 AM CDT us Rivka Sheppard MD CHEMISTRY ORDERABLES Final Resu lt Performing Organization Address City/[facility]/ZIP Co de Phone Number [facility] CLIA # [id number] [address] [place] [address] 79993 * LACTIC ACID (04/09/2025 10:00 AM CDT) LACTIC ACID 1.3 <=2.0 mmol/L 04/09/2025 10:28 AM CDT [facility] Blood BLOOD SPECIMEN / Unknown Collection / Unknown 04/09/2025 10:00 AM CDT 04/09/2025 10:14 AM CDT us Rivka Sheppard MD CHEMISTRY ORDERABLES Final Resu lt [facility] CLIA # [id number] [address] [place] [address] 11136 * LIPASE (04/09/2025 10:00 AM CDT) LIPASE 60 13 - 60 U/L 04/09/2025 10:38 AM CDT [facility] Blood Collection / Unknown 04/09/2025 10:00 AM CDT 04/09/2025 10:14 AM CDT us Rivka Sheppard MD CHEMISTRY ORDERABLES Final Resu lt [facility] CLIA # [id number] [address] [place] [address] 29786 * BRAIN NATRIURETIC PEPTIDE, BNP OR PROBNP (04/09/2025 10:00 AM CDT) PROBNP, N TERMINAL 95 0 - 125 pg/mL 04/09/2025 10:31 AM CDT [facility] Comment: INTERPRETIVE COMMENT based on diagnosis: Diagnostic [...] Sheppard MD CHEMISTRY ORDERABLES Final Resu lt [facility] CLIA # [id number] [address] [place] [address] * (ABNORMAL) COMPREHENSIVE METABOLIC PANEL (04/09/2025 10:00 AM CDT) SODIUM 139 136 - 145 mmol/L 04/09/2025 10:38 AM [facility] POTASSIUM 3.9 3.5 - 5.1 mmol/L 04/09/2025 10:38 AM [facility] CHLORIDE 101 98 - 107 mmol/L 04/09/2025 10:38 AM [facility] CO2 25 22 - 29 mmol/L 04/09/2025 10:38 AM [facility] CALCIUM 9.7 8.8 - 10.2 mg/dL 04/09/2025 10:38 AM [facility] BUN 16 8 - 23 mg/dL 04/09/2025 10:38 AM [facility] CREATININE 0.85 0.67 - 1.17 mg/dL 04/09/2025 10:38 AM [facility] GLUCOSE 137(H) 74 - 99 mg/dL 04/09/2025 10:38 AM [facility] TOTAL PROTEIN 7.7 6.6 - 8.7 g/dL 04/09/2025 10:38 AM [facility] ALBUMIN 4.6 3.5 - 5.2 g/dL 04/09/2025 10:38 AM [facility] BILIRUBIN TOTAL 0.8 0.0 - 1.2 mg/dL 04/09/2025 10:38 AM [facility] ALKALINE PHOSPHATASE 81 40 - 129 U/L 04/09/2025 10:38 AM [facility] AST 78(H) 0 - 50 U/L 04/09/2025 10:38 AM CDT [facility] ALT 77(H) 0 - 50 U/L 04/09/2025 10:38 AM CDT [facility] GFR >60 >=60 mL/min/1.7 3 sq meter 04/09/2025 10:38 AM CDT [facility] Comment:eGFR calculated with 2020 CKD-EPI equation. Vegetarian diet, extremely high or low muscle mass, and may affect results. Cystatin C with Glomerular Filtration Rate is a suitable alternative for these patients. ANION GAP 13 5 - 20 mmol/L 04/09/2025 10:38 AM CDT [facility] Blood Collection / Unknown 04/09/2025 10:00 AM CDT 04/09/2025 10:14 AM CDT us Rivka Sheppard MD CHEMISTRY ORDERABLES Final Resu lt [facility] # [id number] [address] [place] [address]385 * (ABNORMAL) D-DIMER (04/09/2025 10:00 AM CDT) D-DIMER QUANT 0.91(H) <0.50 ug/mL FEU 04/09/2025 10:28 AM CDT [facility] Blood Collection / Unknown 04/09/2025 10:00 AM CDT 04/09/2025 10:14 AM CDT Narrative [facility] - 04/09/2025 10:28 AM CDT D-Dimer assay [...] ORDERABLES Final Res ult Performing Organization Address [facility] [facility] de Phone Number [facility] CLIA # [id number] [address] [place] [address]8529 * SEDIMENTATION RATE (04/09/2025 10:00 AM CDT) ESR (SEDIMENTATION RATE) 6 0 - 20 mm/Hr 04/09/2025 10:29 AM CDT [facility] Blood Collection / Unknown 04/09/2025 10:00 AM CDT 04/09/2025 10:14 AM CDT [facility] - 04/09/2025 10:29 AM CDT Tube Lot: #[id number] Exp Date: 07/15/2026 QC1 LOT [id number] EXP.07/20/2025 QC2 LOT [id number] EXP.07/20/2025 Rivka Sheppard MD HEMATOLOGY ORDERABLES Final Res ult Performing Organization Address [facility] [facility] Co de Phone Number [facility] CLIA # [id number] [address] [place] [address] 26809 * PROTIME-INR (04/09/2025 10:00 AM CDT) PROTIME 13.1 12.1 - 14.3 Seconds 04/09/2025 12:33 PM CDT [facility] Comment:This is a corrected result. Previous result was 17.8 Seconds on 04/09/2025 at 1140 CDT INR 1.0 0.9 - 1.1 04/09/2025 12:33 PM CDT [facility] Comment:This is a corrected result. Previous result was 1.5 on 04/09/2025 at 1140 CDT Blood Collection / Unknown 04/09/2025 10:00 AM CDT 04/09/2025 10:14 AM CDT Narrative [facility] - 04/09/2025 12:33 PM CDT Called corrected report to Dr Sheppard @ 12:31 on 04-09-25.cjb us Rivka Sheppard MD HEMATOLOGY ORDERABLES Edited Re sult - Final [facility] CLIA # [id number] [address] [place] [address] * (ABNORMAL) CBC WITH DIFFERENTIAL (04/09/2025 10:00 AM CDT) WBC 6.7 4.2 - 9.1 K/uL 04/09/2025 10:18 AM [facility] RBC 4.61(L) 4.63 - 6.08 M/uL 04/09/2025 10:18 AM [facility] HEMOGLOBIN 14.8 13.7 - 17.5 g/dL 04/09/2025 10:18 AM [facility] HEMATOCRIT 42.1 40.1 - 51.0 % 04/09/2025 10:18 AM [facility] MCV 91.3 79.0 - 92.2 fL 04/09/2025 10:18 AM [facility] MCH 32.1 25.7 - 32.2 pg 04/09/2025 10:18 AM [facility] MCHC 35.2 32.3 - 36.5 g/dL 04/09/2025 10:18 AM [facility] RDW 12.5 11.0 - 14.5 % 04/09/2025 10:18 AM [facility] RDW-STDEV 41.8 36.9 - 56.9 fL 04/09/2025 10:18 AM [facility] PLATELETS 142 130 - 400 K/uL 04/09/2025 10:18 AM [facility] MPV 10.6 10.0 - 14.8 fL 04/09/2025 10:18 AM [facility] NEUTROPHILS 62 34 - 68 % 04/09/2025 10:18 AM CDT [facility] LYMPHOCYTES 25 22 - 53 % 04/09/2025 10:18 AM CDT [facility] MONOCYTES 11 5 - 12 % 04/09/2025 10:18 AM CDT [facility] EOSINOPHILS 2 1 - 7 % 04/09/2025 10:18 AM CDT [facility] BASOPHILS 1 0 - 1 % 04/09/2025 10:18 AM T [facility] IMMATURE GRANULOCYTES 0 % 04/09/2025 10:18 AM CDT [facility] NEUTROPHIL ABSOLUTE 4.12 1.78 - 5.38 K/uL 04/09/2025 10:18 AM CDT [facility] LYMPHOCYTE ABSOLUTE 1.64 1.20 - 3.40 K/uL 04/09/2025 10:18 AM CDT [facility] MONOCYTE ABSOLUTE 0.71 0.30 - 0.82 K/uL 04/09/2025 10:18 AM CDT [facility] EOSINOPHIL ABSOLUTE 0.13 0.04 - 0.54 K/uL 04/09/2025 10:18 AM T [facility] BASOPHILS ABSOLUTE 0.06 0.01 - 0.08 K/uL 04/09/2025 10:18 AM CDT [facility] IMMATURE GRANULOCYTES ABSOLUTE 0.03 K/uL 04/09/2025 10:18 AM [facility] Blood Collection / Unknown 04/09/2025 10:00 AM CDT 04/09/2025 10:14 AM CDT us Rivka Sheppard MD HEMATOLOGY ORDERABLES Final Res ult [facility] # [id number] [address] [place] [address] * EKG 12-LEAD (04/09/2025 9:58 AM CDT) Narrative Rivka Sheppard MD - 04/09/2025 9:58 AM CDT Rivka Sheppard MD 04/09/2025 1:34 PM EKG 12-LEAD Date/Time: 04/09/2025 9:58 AM Performed by: Rivka Sheppard MD Authorized by: Rivka Sheppard MD ECG interpreted by ED Physician in the absence of a pr specialist: yes Rate: ECG rate: 82 ECG rate assessment: age appropriate Rhythm: Rhythm Origin: sinus Ectopy: Ectopy occurance: occasional Ectopy origin: PVCs Central: QRS axis: Left Intervals: normal QRSTT: QRSTT [...] unspecified documented in this encounter Administered Medications Inactive Administered Medications - up to 3 most recent administrations Medication Order MAR Action Action Date Dose Rate Site heparin in 0.45% NaCl 25,000 unit/250 mL infusion 11.3 Units/kg/hr 88.2 kg (9.9666 mL/hr, rounded to 10 mL/hr), IV, TITRATE, Starting on Betty 04/09/25 at 1300, Until Betty 04/09/25 at 1808, Indication: ACS/STEMI, Dosing by: PER PROTOCOL: Delegate to facility protocol per indication, Re-bolus within Protocol? No, titrate infusion ONLY New Bag 04/09/2025 1:10 PM CDT 11.3 Units/kg/hr 10 mL/hr heparin injection 4,000 Units 4,000 Units, IV, ONE TIME ONLY, 1 dose, On Betty 04/09/25 at 1300, StatIndications:ACS/STEM I Given 04/09/2025 1:07 PM CDT 4,000 Units sodium chloride flush injection 10 mL 10 mL, IV, EVERY 12 HOURS (BlD), First dose on Betty 04/09/25 at 1015, Until Discontinued, Routine sodium chloride flush injection 10 mL 10 mL, IV, SEE ADMIN INSTRUCTIONS, Starting on Betty 04/09/25 at 1007, Until Betty 04/09/25 at 1808, Routine documented in this encounter Active and Recently [...] 04/09/25 at 1015, Until Discontinued, Routine 1015 (Due) sodium chloride flush injection 10 mL 10 mL, IV, SEE ADMIN INSTRUCTIONS, Starting on Betty 04/09/25 at 1007, Until Betty 04/09/25 at 1808, Routine Continuous Medication Order 04/07/2025 04/08/2025 04/09/2025 heparin in 0.45% NaCl 25,000 unit/250 mL infusion 11.3 Units/kg/hr 88.2 kg (9.9666 mL/hr, rounded to 10 mL/hr), IV, TITRATE, Starting on Betty 04/09/25 at 1300, Until Betty 04/09/25 at 1808, Indication: ACS/STEMI, Dosing by: PER PROTOCOL: Delegate to facility protocol per indication, Re-bolus within Protocol? No, titrate infusion ONLY 1310 (New Bag - Prov ider: Savannah Mayer RN)1808 (Due: Order Ending - Provider: PROVIDER, DISCHARGE PATIENT - Comment: [Order ends at this time. Document the following action when infusion is complete: Stopped]) documented in this encounter
[2025-04-09 16:38] VITALS: BP 153/91; PULSE 60; RESP 16; TEMP 36.8; O2SAT 97
--- NOTE | 2025-04-09 16:43 | ECG_ITS ---
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: : 1965 Requested By: Milagros Hinds Order Number: [id number] Anthony MD: JEIMY KEYS Measurements Intervals [place] Rate: 60 P: 23 WI: 137 QRS: -58 QRSD: 121 T: -19 QT: 416 QTc: 418 Interpretive Statements SINUS RHYTHM WITH OCCASIONAL VENTRICULAR PREMATURE COMPLEXES POSSIBLE RIGHT VENTRICULAR CONDUCTION DELAY [RSR (QR) IN V1/V2] LEFT ANTERIOR FASCICULAR BLOCK [QRS AXIS <= -45, QR IN I, RS IN II] MODERATE VOLTAGE CRITERIA FOR LVH, CONSIDER NORMAL VARIANT [MEETS CRITERIA IN ONE OF: R(aVL), S(V1), R(V5), R(V5/V6)+S(V1)] POSSIBLE SEPTAL MYOCARDIAL INFARCTION , PROBABLY OLD [30 ms Q WAVE IN V1/V2] No previous ECG available for comparison Electronically Signed On 04-11-2025 21:36:17 CDT by JEIMY KEYS [email or web address]
--- OUTSIDE RECORDS SUMMARY | 2025-04-09 16:56 | XMS_ITS | Encounter Summary ---
Author Organization [facility] Address [address] [place] [address] Care Team Providers Care Ratoprinter Name Role Phone Unavailable Primary Care Provider Unavailabl e Encounter Details Date Type Department Care Team (Latest Contact Info) Description 09/17/1998 Outpatient [facility] [address] [place] [phone] Manuel May, DO [address] [place] [id number] Toxic effect venom (Primary Dx) Social History Tobacco Use Types Packs/Day Years Used Date Smoking Tobacco: Never Assessed Sex and Gender Information Value Date Recorded Sex Assigned at Not on file 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
--- OUTSIDE RECORDS SUMMARY | 2025-04-09 16:56 | XMS_ITS | Encounter Summary ---
Author Organization [facility] Address [address] [place] [address] Care Team Providers Care Superintendent Factory Name Role Phone Unavailable Primary Care Provider Unavailabl e Encounter Details Date Type Department Care Team (Late st Contact Info) Description 04/06/2017 Lab Requisition [facility] [address] [place] [phone] Mtnv, External Provider [address] [facility] [address] [place] [address] Social History Tobacco Use Types Packs/Day Years Used Date Smoking Tobacco: Never Assessed Sex and Gender Information Value Date Recorded Sex Assigned at Not on file 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 Gender Identity Not on file Sexual Orientation Not on file documented as of this encounter Plan of Treatment Not on file documented as of this encounter Procedures Procedure Name Priority Date/Time Associated Diagnosis Comments PSA MEDICARE SCREEN Routine 04/06/2017 8 :15 AM CDT CBC WITH DIFFERENTIAL Routine 04/06/2017 8:15 AM CDT LIPID PANEL Routine 04/06/2017 8:15 AM CDT COMPREHENSIVE METABOLIC PANEL Routine 04/06/2017 8:15 AM CDT documented in this encounter Results * (ABNORMAL) COMPREHENSIVE METABOLIC PANEL (04/06/2017 8:15 AM CDT) SODIUM 139 136 - 145 mmol/L 04/06/2017 11:45 AM CDT [facility] POTASSIUM 4.3 3.5 - 5.1 mmol/L 04/06/2017 11:45 AM CDT [facility] CHLORIDE 100 98 - 107 mmol/L 04/06/2017 11:45 AM [facility] CO2 25 22 - 29 mmol/L 04/06/2017 11:45 AM [facility] CALCIUM 9.0 8.6 - 10.0 mg/dL 04/06/2017 11:45 AM [facility] BUN 12 6 - 20 mg/dL 04/06/2017 11:45 AM [facility] CREATININE 0.86 0.67 - 1.17 mg/dL 04/06/2017 11:45 AM [facility] GLUCOSE 109(H) 74 - 106 mg/dL 04/06/2017 11:45 AM [facility] TOTAL PROTEIN 7.9 6.6 - 8.7 g/dL 04/06/2017 11:45 AM [facility] ALBUMIN 4.6 3.5 - 5.2 g/dL 04/06/2017 11:45 AM [facility] BILIRUBIN TOTAL 0.7 0.0 - 1.2 mg/dL 04/06/2017 11:45 AM [facility] ALKALINE PHOSPHATASE 87 40 - 129 U/L 04/06/2017 11:45 AM [facility] AST 57(H) 10 - 50 U/L 04/06/2017 11:45 AM [facility] ALT 93(H) 10 - 50 U/L 04/06/2017 11:45 AM [facility] GFR >60 >=60 mL/min/1.7 3 sq meter 04/06/2017 11:45 AM [facility] Comment: eGFR has not been validated for use in the elderly (> 70 years of age), women, patients with serious co-morbid conditions, or persons with extremes of body size or muscle mass and should also be interpreted with caution in patients with acute kidney failure, dialysis dependent patients, patients reporting exceptional dietary intake (e.g. vegetarian diet, high protein diets, creatine supplementation), and patients with severe liver disease. Based on National Kidney Disease Education Program If patient is , please refer to the GFR result. GFR, >60 >=60 mL/min/1.7 3 sq meter 04/06/2017 11:45 AM CDT [facility] ANION GAP 14 12 - 20 mmol/L 04/06/2017 11:45 AM T [facility] Blood Venipuncture / Unknown 04/06/2017 8:15 AM CDT 04/06/2017 11:11 AM CDT External Provider Mtnv CHEMISTRY ORDERABLES Mary Grace l Result [facility] CLIA # [id number] [address] [place] [address] * (ABNORMAL) LIPID PANEL (04/06/2017 8:15 AM CDT) CHOLESTEROL 276(H) <200 mg/dL 04/06/2017 11:45 AM CDT [facility] TRIGLYCERIDE 318(H) <150 mg/dL 04/06/2017 11:45 AM T [facility] HDL 50 40 - 59 mg/dL 04/06/2017 11:45 AM T [facility] LDL CALCULATED 162(H) <100 mg/dL 04/06/2017 11:45 AM T [facility] NON-HDL CHOLESTEROL 226(H) <130 mg/dL 04/06/2017 11:45 AM T [facility] Blood Venipuncture / Unknown 04/06/2017 8:15 AM CDT 04/06/2017 11:11 AM CDT Narrative [facility] - 04/06/2017 11:45 AM CDT TOTAL CHOLESTEROL mg/dL Desirable <200 Borderline high 200-239 High >=240 TRIGLYCERIDES mg/dL Normal <150 Borderline high 150-199 High 200-499 Very high >=500 HDL CHOLESTEROL mg/dL Low <40 Normal 40-59 Desirable >=60 NON HDL CHOLESTEROL mg/dL Optimal <130 Near Optimal 130-159 Borderline High 160-189 Very High >=190 Calculated LDL mg/dL Optimal <100 Near Optimal 100-129 Borderline High 130-159 High 160-189 Very High >=190 ATPIII Guidelines Reference Ranges for Lipid Panels (NCEP/AMA) us External Provider Mtnv CHEMISTRY ORDERABLES Mary Grace l Result [facility] CLIA # [id number] [address] [place] [address] * (ABNORMAL) CBC WITH DIFFERENTIAL (04/06/2017 8:15 AM CDT) WBC 6.3 4.2 - 9.1 K/uL 04/06/2017 11:44 AM [facility] RBC 5.07 4.63 - 6.08 M/uL 04/06/2017 11:44 AM [facility] HEMOGLOBIN 16.4 13.7 - 17.5 g/dL 04/06/2017 11:44 AM [facility] HEMATOCRIT 47.3 40.1 - 51.0 % 04/06/2017 11:44 AM [facility] MCV 93.3(H) 79.0 - 92.2 fL 04/06/2017 11:44 AM [facility] MCH 32.3(H) 25.7 - 32.2 pg 04/06/2017 11:44 AM [facility] MCHC 34.7 32.3 - 36.5 g/dL 04/06/2017 11:44 AM [facility] RDW 13.0 11.0 - 14.5 % 04/06/2017 11:44 AM [facility] RDW-STDEV 43.4 36.9 - 56.9 fL 04/06/2017 11:44 AM [facility] PLATELETS 170 130 - 400 K/uL 04/06/2017 11:44 AM [facility] MPV 12.5 10.0 - 14.8 fL 04/06/2017 11:44 AM [facility] NEUTROPHILS 51 34 - 68 % 04/06/2017 11:44 AM [facility] LYMPHOCYTES 33 22 - 53 % 04/06/2017 11:44 AM [facility] MONOCYTES 12 5 - 12 % 04/06/2017 11:44 AM [facility] EOSINOPHILS 4 1 - 7 % 04/06/2017 11:44 AM T [facility] BASOPHILS 1 0 - 1 % 04/06/2017 11:44 AM T [facility] IMMATURE GRANULOCYTES 0 % 04/06/2017 11:44 AM [facility] NEUTROPHIL ABSOLUTE 3.21 1.78 - 5.38 K/uL 04/06/2017 11:44 AM [facility] LYMPHOCYTE ABSOLUTE 2.09 1.20 - 3.40 K/uL 04/06/2017 11:44 AM T [facility] MONOCYTE ABSOLUTE 0.73 0.30 - 0.82 K/uL 04/06/2017 11:44 AM [facility] EOSINOPHIL ABSOLUTE 0.23 0.04 - 0.54 K/uL 04/06/2017 11:44 AM [facility] BASOPHILS ABSOLUTE 0.05 0.01 - 0.08 K/uL 04/06/2017 11:44 AM [facility] IMMATURE GRANULOCYTES ABSOLUTE 0.02 K/uL 04/06/2017 11:44 AM [facility] Blood Venipuncture / Unknown 04/06/2017 8:15 AM CDT 04/06/2017 11:11 AM CDT us External Provider Mtnv HEMATOLOGY ORDERABLES Fin al Result [facility] CLIA # [id number] [address] [place] [address] * PSA MEDICARE SCREEN (04/06/2017 8:15 AM CDT) PSA 0.8 0.0 - 3.1 ng/mL 04/06/2017 11:56 AM T [facility] Blood Venipuncture / Unknown 04/06/2017 8:15 AM CDT 04/06/2017 11:11 AM CDT us External Provider Mtnv CHEMISTRY ORDERABLES COM Final Result [facility] CLIA # [id number] [address] [place] [address] documented in this encounter Visit Diagnoses Not on filedocumented in this encounter
--- OUTSIDE RECORDS SUMMARY | 2025-04-09 16:56 | XMS_ITS | Encounter Summary ---
Author Organization [facility] Address [address] [place] [address] Care Team Providers Care Ship Design Teacher Name Role Phone Unavailable Primary Care Provider Unavailabl e Encounter Details Date Type Department Care Team (Late st Contact Info) Description 03/08/1999 Outpatient Historical [facility] 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
--- OUTSIDE RECORDS SUMMARY | 2025-04-09 16:56 | XMS_ITS | Clinical Summary ---
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
--- OUTSIDE RECORDS SUMMARY | 2025-04-09 16:56 | XMS_ITS | Encounter Summary ---
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
--- OUTSIDE RECORDS SUMMARY | 2025-04-09 16:56 | XMS_ITS | Encounter Summary ---
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
--- OUTSIDE RECORDS SUMMARY | 2025-04-09 16:56 | XMS_ITS | Clinical Summary ---
Author Organization [facility] Address [address] [facility] Attn: Epic Prelude ADT [place] [address] Care Team Providers Care Global Human Resources Director Name Role Phone Unavailable Primary Care Provider Unavailabl e Allergies No known active allergies Medications No known medications Active Problems Problem Noted Date Diagnosed Date NSTEMI (non-ST elevated myocardial infarction) 0 04/09/2025 Encounters Date Type Department Care Team Description 04/09/2025 9:56 AM CDT - 04/09/2025 3:56 PM CDT Emergency [facility] Emergency Medicine [address] [place] [id number] Rivka Sheppard MD NSTEMI (non-ST elevated myocardial infarction) (CMS/HCC) (Primary Dx) Discharge Disposition: Left Against Medical Advice 04/09/2025 Travel from Last 3 Months Social History Tobacco Use Types Packs/Day Years [...] on file 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 Gender Identity Not on file Sexual Orientation Not on file Last Filed Vital Signs Vital Sign Reading [...] Mass Index 27.89 04/09/2025 9:57 AM CDT Plan of Treatment Health Maintenance Due Date Last Done Comments DTAP/TDAP/TD VACCINES (1 - Tdap) 02/15/1983 Traditional Medicare (ACO) Annual Wellness Visit 02/15 COLORECTAL SCREENING 02/15/2009 Colorectal Cancer Screening 02/15/2009 FIT-DNA Q 3 years 02/15/2009 FIT/FOBT Q 1 year 02/15/2009 Flex Sig/CT Colonography Q 5 years 02/15/2009 ZOSTER VACCINE (1 of 2) 02/15/2014 INFLUENZA VACCINE (#1) 2025 RSV VACCINE (60+ or ) (1 - 1-dose 75+ series) 02/15/2039 Procedures Procedure Name Priority Date/Time Associated Diagnosis Comments EKG 12-LEAD Stat 04/09/2025 12:23 PM CDT TROPONIN 2 HR, 5TH GEN Timed Study 04/09/2025 11:39 AM CDT XR CHEST PA OR AP 1 VW Stat 04/09/2025 10:28 AM CDT TROPONIN BASELINE, 5TH GEN Stat 04/09/2025 10:00 AM CDT TSH Stat 04/09/2025 10:00 AM CDT MAGNESIUM LEVEL Stat 04/09/2025 10:00 AM CDT C-REACTIVE PROTEIN Stat 04/09/2025 10 :00 AM CDT LACTIC ACID Stat 04/09/2025 10:00 AM CDT LIPASE Stat 04/09/2025 10:00 AM CDT BRAIN NATRIURETIC PEPTIDE, BNP OR PROBNP Stat 04/09/2025 10:00 AM CDT COMPREHENSIVE METABOLIC PANEL Stat 04/09/2025 10:00 AM CDT D-DIMER Stat 04/09/2025 10:00 AM CDT SEDIMENTATION RATE Stat 04/09/2025 10 :00 AM CDT PROTIME-INR Stat 04/09/2025 10:00 AM CDT CBC WITH DIFFERENTIAL Stat 04/09/2025 10:00 AM CDT EKG 12-LEAD Stat 04/09/2025 9:58 AM CDT from Last 3 Months Results * EKG 12-LEAD (04/09/2025 12:23 PM CDT) Only the most recent of2 resultswithin the time period is included. Narrative Rivka Sheppard MD - 04/09/2025 12:23 PM CDT Rivka Sheppard MD 04/09/2025 1:34 PM EKG 12-LEAD Date/Time: 04/09/2025 12:23 PM Performed by: Rivka Sheppard MD Authorized by: Rivka Sheppard MD ECG interpreted by ED Physician in the absence of a manufacturing weaver: yes Rate: ECG rate: 62 ECG rate assessment: age appropriate Rhythm: Rhythm Origin: sinus [place]: QRS axis: Left Intervals: normal QRSTT: QRSTT changes: Yes Comments: Changes now in lead III, aVF and lead V6 with T wave inversions. No ST segment elevation or depression. us Rivka Sheppard MD ECG ORDERABLES Final Result * (ABNORMAL) TROPONIN 2 HR, 5TH GEN (04/09/2025 11:39 AM CDT) TROPONIN T, 2 HR 5TH GEN 28(H) <=15 ng/L 04/09/2025 12:07 PM CDT [facility] DELTA 2HR TROPONIN T 15(HH) See Interp. 04/09/2025 12:07 PM CDT [facility] Blood BLOOD SPECIMEN / Unknown Collection / Unknown 04/09/2025 11:39 AM CDT 04/09/2025 11:44 AM CDT Narrative [facility] - 04/09/2025 12:07 PM CDT Troponin elevated. Delay in collection of timed specimen beyond recommended collection interval. Results must be interpreted in clinical context. Delta significant change. us Rivka Sheppard MD CHEMISTRY ORDERABLES Final Resu lt [facility] CLIA # [id number] [address] [place] [address] * XR CHEST PA OR AP 1 [...] 13 <=15 ng/L 04/09/2025 10:31 AM CDT [facility] Blood Collection / Unknown 04/09/2025 10:00 AM CDT 04/09/2025 10:14 AM CDT Narrative [facility] - 04/09/2025 10:31 AM CDT Troponin Detectable but normal range. us Rivka Sheppard MD CHEMISTRY ORDERABLES Final Resu lt Performing Organization Address City/[facility]/ZIP Co de Phone Number [facility] CLIA # [id number] [address] [place] [phone] * LACTIC ACID (04/09/2025 10:00 AM CDT) LACTIC ACID 1.3 <=2.0 mmol/L 04/09/2025 10:28 AM CDT [facility] Blood BLOOD SPECIMEN / Unknown Collection / Unknown 04/09/2025 10:00 AM CDT 04/09/2025 10:14 AM CDT us Rivka Sheppard MD CHEMISTRY ORDERABLES Final Resu lt Performing Organization Address [facility] Co de Phone Number [facility] CLIA # [id number] [address] [place] [address] * (ABNORMAL) CBC WITH DIFFERENTIAL (04/09/2025 10:00 AM CDT) WBC 6.7 4.2 - 9.1 K/uL 04/09/2025 10:18 AM CDT [facility] RBC 4.61(L) 4.63 - 6.08 M/uL 04/09/2025 10:18 AM CDT [facility] HEMOGLOBIN 14.8 13.7 - 17.5 g/dL 04/09/2025 10:18 AM CDT [facility] HEMATOCRIT 42.1 40.1 - 51.0 % 04/09/2025 10:18 AM T [facility] MCV 91.3 79.0 - 92.2 fL 04/09/2025 10:18 AM [facility] MCH 32.1 25.7 - 32.2 pg 04/09/2025 10:18 AM [facility] MCHC 35.2 32.3 - 36.5 g/dL 04/09/2025 10:18 AM [facility] RDW 12.5 11.0 - 14.5 % 04/09/2025 10:18 AM [facility] RDW-STDEV 41.8 36.9 - 56.9 fL 04/09/2025 10:18 AM [facility] PLATELETS 142 130 - 400 K/uL 04/09/2025 10:18 AM [facility] MPV 10.6 10.0 - 14.8 fL 04/09/2025 10:18 AM [facility] NEUTROPHILS 62 34 - 68 % 04/09/2025 10:18 AM [facility] LYMPHOCYTES 25 22 - 53 % 04/09/2025 10:18 AM [facility] MONOCYTES 11 5 - 12 % 04/09/2025 10:18 AM [facility] EOSINOPHILS 2 1 - 7 % 04/09/2025 10:18 AM [facility] BASOPHILS 1 0 - 1 % 04/09/2025 10:18 AM [facility] IMMATURE GRANULOCYTES 0 % 04/09/2025 10:18 AM [facility] NEUTROPHIL ABSOLUTE 4.12 1.78 - 5.38 K/uL 04/09/2025 10:18 AM [facility] LYMPHOCYTE ABSOLUTE 1.64 1.20 - 3.40 K/uL 04/09/2025 10:18 AM [facility] MONOCYTE ABSOLUTE 0.71 0.30 - 0.82 K/uL 04/09/2025 10:18 AM [facility] EOSINOPHIL ABSOLUTE 0.13 0.04 - 0.54 K/uL 04/09/2025 10:18 AM [facility] BASOPHILS ABSOLUTE 0.06 0.01 - 0.08 K/uL 04/09/2025 10:18 AM CDT [facility] IMMATURE GRANULOCYTES ABSOLUTE 0.03 K/uL 04/09/2025 10:18 AM CDT [facility] Blood Collection / Unknown 04/09/2025 10:00 AM CDT 04/09/2025 10:14 AM CDT us Rivka Sheppard MD HEMATOLOGY ORDERABLES Final Res ult Performing Organization Address City/[facility] Co de Phone Number [facility] CLIA # [id number] [address] [place] [phone] * SEDIMENTATION RATE (04/09/2025 10:00 AM CDT) ESR (SEDIMENTATION RATE) 6 0 - 20 mm/Hr 04/09/2025 10:29 AM CDT [facility] Blood Collection / Unknown 04/09/2025 10:00 AM CDT 04/09/2025 10:14 AM CDT Narrative [facility] - 04/09/2025 10:29 AM CDT Tube Lot: #[id number] Exp Date: 07/15/2026 QC1 LOT [id number] EXP.07/20/2025 QC2 LOT [id number] EXP.07/20/2025 us Rivka Sheppard MD HEMATOLOGY ORDERABLES Final Res ult Performing Organization Address [facility] Co de Phone Number [facility] CLIA # [id number] [address] [place] [address] * PROTIME-INR (04/09/2025 10:00 AM CDT) PROTIME 13.1 12.1 - 14.3 Seconds 04/09/2025 12:33 PM CDT [facility] Comment:This is a corrected result. Previous result was 17.8 Seconds on 04/09/2025 at 1140 CDT INR 1.0 0.9 - 1.1 04/09/2025 12:33 PM CDT [facility] Comment:This is a corrected result. Previous result was 1.5 on 04/09/2025 at 1140 CDT Blood Collection / Unknown 04/09/2025 10:00 AM CDT 04/09/2025 10:14 AM CDT [facility] - 04/09/2025 12:33 PM CDT Called corrected report to Dr Sheppard @ 12:31 on 04-09-25.cjb us Rivka Sheppard MD HEMATOLOGY ORDERABLES Edited Re sult - Final Performing Organization Address City/[facility]/ZIP Co de Phone Number [facility] CLIA # [id number] [address] [place] [address] * (ABNORMAL) D-DIMER (04/09/2025 10:00 AM CDT) D-DIMER QUANT 0.91(H) <0.50 ug/mL FEU 04/09/2025 10:28 AM CDT [facility] Blood Collection / Unknown 04/09/2025 10:00 AM CDT 04/09/2025 10:14 AM CDT [facility] - 04/09/2025 10:28 AM CDT D-Dimer assay [...] ug/mL FEU 71-80 years: 0.71-0.80 ug/mL FEU us Rivka Sheppard MD HEMATOLOGY ORDERABLES Final Res ult Performing Organization Address City/[facility]/ZIP Co de Phone Number [facility] CLIA # [id number] [address] [place] [address]1998 * C-REACTIVE PROTEIN (04/09/2025 10:00 AM CDT) CRP <3.0 <5.0 mg/L 04/09/2025 10:38 AM CDT [facility] Blood Collection / Unknown 04/09/2025 10:00 AM CDT 04/09/2025 10:14 AM CDT us Rivka Sheppard MD CHEMISTRY ORDERABLES Final Resu lt Performing Organization Address City/[facility]/ZIP Co de Phone [id number] [address] [place] [address] * TSH (04/09/2025 10:00 AM CDT) TSH 1.96 0.27 - 4.20 uIU/mL 04/09/2025 10:38 AM CDT [facility] Blood Collection / Unknown 04/09/2025 10:00 AM CDT 04/09/2025 10:14 AM CDT us Rivka Sheppard MD CHEMISTRY ORDERABLES Final Resu lt Performing Organization Address City/[facility]/ZIP Co de Phone Number [facility] CLIA # [id number] [address] [place] [phone] * BRAIN NATRIURETIC PEPTIDE, BNP OR PROBNP (04/09/2025 10:00 AM CDT) PROBNP, N TERMINAL 95 0 - 125 pg/mL 04/09/2025 10:31 AM CDT [facility] Comment: INTERPRETIVE COMMENT based on diagnosis: [...] ORDERABLES Final Resu lt Performing Organization Address City/[facility]/ZIP Co de Phone Number [facility] CLIA # [id number] [address] [place] [address] * MAGNESIUM LEVEL (04/09/2025 10:00 AM CDT) MAGNESIUM 2.0 1.6 - 2.4 mg/dL 04/09/2025 10:38 AM CDT [facility] Blood Collection / Unknown 04/09/2025 10:00 AM CDT 04/09/2025 10:14 AM CDT Result Mo Sheppard MD CHEMISTRY ORDERABLES Final Resu lt Performing Organization Address [facility] Co oh Phone Number [facility] CLIA # [id number] [address] [place] [phone] * LIPASE (04/09/2025 10:00 AM CDT) LIPASE 60 13 - 60 U/L 04/09/2025 10:38 AM CDT [facility] Blood Collection / Unknown 04/09/2025 10:00 AM CDT 04/09/2025 10:14 AM CDT Result Mo Sheppard MD CHEMISTRY ORDERABLES Final Resu lt Performing Organization Address [facility] Co de Phone Number [facility] CLIA # [id number] [address] [place] [phone] * (ABNORMAL) COMPREHENSIVE METABOLIC PANEL (04/09/2025 10:00 AM [facility]) SODIUM 139 136 - 145 mmol/L 04/09/2025 10:38 AM [facility] POTASSIUM 3.9 3.5 - 5.1 mmol/L 04/09/2025 10:38 AM [facility] CHLORIDE 101 98 - 107 mmol/L 04/09/2025 10:38 AM [facility] CO2 25 22 - 29 mmol/L 04/09/2025 10:38 AM [facility] CALCIUM 9.7 8.8 - 10.2 mg/dL 04/09/2025 10:38 AM [facility] BUN 16 8 - 23 mg/dL 04/09/2025 10:38 AM [facility] CREATININE 0.85 0.67 - 1.17 mg/dL 04/09/2025 10:38 AM [facility] GLUCOSE 137(H) 74 - 99 mg/dL 04/09/2025 10:38 AM [facility] TOTAL PROTEIN 7.7 6.6 - 8.7 g/dL 04/09/2025 10:38 AM [facility] ALBUMIN 4.6 3.5 - 5.2 g/dL 04/09/2025 10:38 AM [facility] BILIRUBIN TOTAL 0.8 0.0 - 1.2 mg/dL 04/09/2025 10:38 AM [facility] ALKALINE PHOSPHATASE 81 40 - 129 U/L 04/09/2025 10:38 AM [facility] AST 78(H) 0 - 50 U/L 04/09/2025 10:38 AM [facility] ALT 77(H) 0 - 50 U/L 04/09/2025 10:38 AM [facility] GFR >60 >=60 mL/min/1.7 3 sq meter 04/09/2025 10:38 AM [facility] Comment:eGFR calculated with 2020 CKD-EPI equation. Vegetarian diet, extremely high or low muscle mass, and may affect results. Cystatin C with Glomerular Filtration Rate is a suitable alternative for these patients. ANION GAP 13 5 - 20 mmol/L 04/09/2025 10:38 AM CDT [facility] Blood Collection / Unknown 04/09/2025 10:00 AM CDT 04/09/2025 10:14 AM CDT us Rivka Sheppard MD CHEMISTRY ORDERABLES Final Resu lt [facility] CLIA # [id number] [address] [address] from Last 3 Months Insurance MEDICARE PART A AND B
--- OUTSIDE RECORDS SUMMARY | 2025-04-09 16:56 | XMS_ITS | Encounter Summary ---
Author Organization [facility] Address [address] [place] [address] Care Team Providers Care Sericulturist Name Role Phone Unavailable Primary Care Provider Unavailabl e Encounter Details Date Type Department Care Team (Latest Contact Info) Description 02/12/1998 Outpatient Historical [facility] Asa Valencia MD NO ADDRESS ON FILE Degeneration of cervical intervertebral disc (Primary Dx) Social History Tobacco Use Types Packs/Day Years Used Date Smoking Tobacco: Never Assessed Sex and Gender Information Value Date Recorded Sex Assigned at Not on file 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
--- OUTSIDE RECORDS SUMMARY | 2025-04-09 16:56 | XMS_ITS | Encounter Summary ---
Author Organization [facility] Address [address] [place] [address] Care Team Providers Care Machine Design Teacher Name Role Phone Unavailable Primary Care Provider Unavailabl e Encounter Details Date Type Department Care Team (Late st Contact Info) Description 04/05/2018 Lab Requisition [facility] [place] [address] [place] [address] Reyna Alamo MD NO ADDRESS ON FILE Social History Tobacco Use Types Packs/Day Years Used Date Smoking Tobacco: Never Assessed Sex and Gender Information Value Date Recorded Sex Assigned at Not on file Legal Sex Male 3:[address] L[employer] Gender Identity Not on file Sexual Orientation Not on file documented as of this encounter Plan of Treatment Not on file documented as of this encounter Procedures Procedure Name Priority Date/Time Associated Diagnosis Comments PSA MEDICARE SCREEN Routine 04/05/2018 7 :35 AM CDT CBC WITH DIFFERENTIAL Routine 04/05/2018 7:35 AM CDT TSH Routine 04/05/2018 7:35 AM CDT HEMOGLOBIN A1C Routine 04/05/2018 7:35 AM CDT LIPID PANEL Routine 04/05/2018 7:35 AM CDT COMPREHENSIVE METABOLIC PANEL Routine 04/05/2018 7:35 AM CDT documented in this encounter Results * (ABNORMAL) COMPREHENSIVE METABOLIC PANEL (04/05/2018 7:35 AM CDT) SODIUM 139 136 - 145 mmol/L 04/05/2018 11:[address] [facility] POTASSIUM 4.3 3.5 - 5.1 mmol/L 04/05/2018 11:[address] [facility] CHLORIDE 100 98 - 107 mmol/L 04/05/2018 11:[address] [facility] CO2 28 22 - 29 mmol/L 04/05/2018 11:[address] [facility] CALCIUM 8.8 8.6 - 10.0 mg/dL 04/05/2018 11:[address] [facility] BUN 16 6 - 20 mg/dL 04/05/2018 11:[address] [facility] CREATININE 1.06 0.67 - 1.17 mg/dL 04/05/2018 11:[address] [facility] GLUCOSE 110(H) 74 - 99 mg/dL 04/05/2018 11:[address] [facility] TOTAL PROTEIN 7.0 6.6 - 8.7 g/dL 04/05/2018 11:[address] [facility] ALBUMIN 4.2 3.5 - 5.2 g/dL 04/05/2018 11:[address] [facility] BILIRUBIN TOTAL 0.4 0.0 - 1.2 mg/dL 04/05/2018 11:[address] [facility] ALKALINE PHOSPHATASE 85 40 - 129 U/L 04/05/2018 11:[address] [facility] AST 36 10 - 50 U/L 04/05/2018 11:[address] [facility] ALT 43 10 - 50 U/L 04/05/2018 11:[address] [facility] GFR >60 >=60 mL/min/1.7 3 sq meter 04/05/2018 11:[address] [facility] Comment: eGFR has not been [...] GFR, >60 >=60 mL/min/1.7 3 sq meter 04/05/2018 11:21 AM T [facility] ANION GAP 11(L) 12 - 20 mmol/L 04/05/2018 11:21 AM T [facility] Blood Collection / Unknown 04/05/2018 7:35 AM CDT 04/05/2018 9:22 AM CDT us Reyna Alamo MD CHEMISTRY ORDERABLES F inal Result [facility] CLIA # [id number] [address] [place] [address] * (ABNORMAL) LIPID PANEL (04/05/2018 7:35 AM CDT) CHOLESTEROL 248(H) <200 mg/dL 04/05/2018 11:21 AM T [facility] TRIGLYCERIDE 186(H) <150 mg/dL 04/05/2018 11:[address] [facility] HDL 48 40 - 59 mg/dL 04/05/2018 11:[address] [facility] LDL CALCULATED 163(H) <100 mg/dL 04/05/2018 11:[address] [facility] NON-HDL CHOLESTEROL 200(H) <130 mg/dL 04/05/2018 11:21 AM T [facility] Blood Collection / Unknown 04/05/2018 7:35 AM CDT 04/05/2018 9:22 AM CDT Narrative [facility] - 04/05/2018 11:21 AM CDT TOTAL CHOLESTEROL mg/dL Desirable <200 [...] Reference Ranges for Lipid Panels (NCEP/AMA) us Reyna Alamo MD CHEMISTRY ORDERABLES F inal Result [facility] CLIA # [id number] [address] [address] * (ABNORMAL) CBC WITH DIFFERENTIAL (04/05/2018 7:35 AM CDT) WBC 7.5 4.2 - 9.1 K/uL 04/05/2018 10:48 AM T [facility] RBC 5.08 4.63 - 6.08 M/uL 04/05/2018 10:[address] [facility] HEMOGLOBIN 15.7 13.7 - 17.5 g/dL 04/05/2018 10:[address] [facility] HEMATOCRIT 47.5 40.1 - 51.0 % 04/05/2018 10:[address] [facility] MCV 93.5(H) 79.0 - 92.2 fL 04/05/2018 10:[address] [facility] MCH 30.9 25.7 - 32.2 pg 04/05/2018 10:[address] [facility] MCHC 33.1 32.3 - 36.5 g/dL 04/05/2018 10:[address] [facility] RDW 12.9 11.0 - 14.5 % 04/05/2018 10:[address] [facility] RDW-STDEV 42.8 36.9 - 56.9 fL 04/05/2018 10:[address] [facility] PLATELETS 157 130 - 400 K/uL 04/05/2018 10:[address] [facility] MPV 12.2 10.0 - 14.8 fL 04/05/2018 10:[address] [facility] NEUTROPHILS 56 34 - 68 % 04/05/2018 10:[address] [facility] LYMPHOCYTES 24 22 - 53 % 04/05/2018 10:[address] [facility] MONOCYTES 12 5 - 12 % 04/05/2018 10:[address] [facility] EOSINOPHILS 6 1 - 7 % 04/05/2018 10:[address] [facility] BASOPHILS 1 0 - 1 % 04/05/2018 10:[address] [facility] IMMATURE GRANULOCYTES 0 % 04/05/2018 10:[address] [facility] NEUTROPHIL ABSOLUTE 4.21 1.78 - 5.38 K/uL 04/05/2018 10:[address] [facility] LYMPHOCYTE ABSOLUTE 1.82 1.20 - 3.40 K/uL 04/05/2018 10:[address] [facility] MONOCYTE ABSOLUTE 0.90(H) 0.30 - 0.82 K/uL 04/05/2018 10:[address] [facility] EOSINOPHIL ABSOLUTE 0.45 0.04 - 0.54 K/uL 04/05/2018 10:[address] [facility] BASOPHILS ABSOLUTE 0.05 0.01 - 0.08 K/uL 04/05/2018 10:[address] [facility] IMMATURE GRANULOCYTES ABSOLUTE 0.03 K/uL 04/05/2018 10:[address] [facility] Blood Collection / Unknown 04/05/2018 7:35 AM CDT 04/05/2018 9:22 AM CDT us Reyna Alamo MD HEMATOLOGY ORDERABLES Final Result [facility] CLIA # [id number] [address] [place] [address] * PSA MEDICARE SCREEN (04/05/2018 7:35 AM CDT) PSA 0.6 0.0 - 3.1 ng/mL 04/05/2018 11:07 AM T [facility] Blood Collection / Unknown 04/05/2018 7:35 AM CDT 04/05/2018 9:22 AM CDT us Reyna Alamo MD CHEMISTRY ORDERABLES C OM Final Result Performing Organization Address City/[facility]/ZIP Co de Phone Number [facility] CLIA # [id number] [address] [place] [address] * TSH (04/05/2018 7:35 AM CDT) Pathologist [facility] TSH 2.50 0.27 - 4.20 uIU/mL 04/05/2018 11:07 AM CDT [facility] Blood Collection / Unknown 04/05/2018 7:35 AM CDT 04/05/2018 9:22 AM CDT us Reyna Alamo MD CHEMISTRY ORDERABLES F inal Result Performing Organization Address [facility] Co de Phone Number [facility] CLIA # [id number] [address] [place] [phone] * HEMOGLOBIN A1C (04/05/2018 7:35 AM CDT) Pathologist [facility] HEMOGLOBIN A1C 5.5 4.8 - 5.9 % 04/05/2018 11:23 AM CDT [facility] EST. AVG GLUCOSE, A1C 111 mg/dL 04/05/2018 11:23 AM CDT [facility] Blood Collection / Unknown 04/05/2018 7:35 AM CDT 04/05/2018 9:[address] [facility] - 04/05/2018 11:23 AM CDT HGB A1C INTERPRETATION NORMAL: <5.7% PRE-DIABETES: 5.7 - 6.4% DIABETES: 6.5% OR GREATER us Reyna Alamo MD CHEMISTRY ORDERABLES F inal Result Performing Organization Address City/[facility]/ZIP Co de Phone Number [facility] CLIA # [id number] [address] [place] [phone] documented in this encounter Visit Diagnoses Not on filedocumented in this encounter
--- OUTSIDE RECORDS SUMMARY | 2025-04-09 16:56 | XMS_ITS | Encounter Summary ---
Author Organization [facility] Address [address] [place] [address] Care Team Providers Care Power Distribution Engineer Name Role Phone Unavailable Primary Care Provider Unavailabl e Encounter Details Date Type Department Care Team (Latest Contact Info) Description 09/07/2004 Outpatient Historical [facility] [address] [place] [address] Juliet Lopez, FOUNDRY TENDER [address] [place] [id number] ACUTE URI NOS (Primary Dx); ACUTE SINUSITIS NOS Social History Tobacco Use Types Packs/Day Years Used Date Smoking Tobacco: Never Assessed Sex and Gender Information Value Date Recorded Sex Assigned at Not on file 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
--- OUTSIDE RECORDS SUMMARY | 2025-04-09 16:56 | XMS_ITS | Encounter Summary ---
Author Organization [facility] Address [address] Attn: Epic Prelude ADT WILLEM AREVALO [address] Care Team Providers Care Ladle Handler Name Role Phone Unavailable Primary Care Provider Unavailabl e Encounter Details Date Type Department Care Team (Latest Contact Info) Description 04/09/2025 Travel Social History Tobacco Use Types Packs/Day Years Used Date Smoking Tobacco: Never Smokeless Tobacco: Never Alcohol Use Standard Drinks/Week Comments Yes 1 (1 standard drink = 0.6 oz pur e alcohol) Feeling Safe Answer Date Recorded Are you in a relationship wi th someone who hurts you emotionally and/or physically? No 04/09/2025 Sex and Gender Information Value Date Recorded Sex Assigned at Not on file Legal Sex Male 3:25 AM VISUAL COORDINATOR Gender Identity Not on file Sexual Orientation Not on file documented as of this encounter Plan of Treatment Not on file documented as of this encounter Visit Diagnoses Not on filedocumented in this encounter
--- OUTSIDE RECORDS SUMMARY | 2025-04-09 16:56 | XMS_ITS | Encounter Summary ---
Author Organization [facility] Address [address] [place] [address] Care Team Providers Care Personal Development Coach Name Role Phone Unavailable Primary Care Provider Unavailabl e Encounter Details Date Type Department Care Team (Latest Contact Info) Description 05/18/2003 Outpatient Historical [facility] [address] [place] [address] Duke Storey MD [address] [address] JOINT PAIN-L/LEG (Primary Dx) Social History Tobacco Use Types Packs/Day Years Used Date Smoking Tobacco: Never Assessed Sex and Gender Information Value Date Recorded Sex Assigned at Not on file Legal Sex Male 3:20 AM SUPPORT SERVICES COORDINATOR Gender Identity Not on file Sexual Orientation Not on file documented as of this encounter Plan of Treatment Not on file documented as of this encounter Visit Diagnoses Diagnosis Pain in joint, lower leg- Primary documented in this encounter
--- OUTSIDE RECORDS SUMMARY | 2025-04-09 16:56 | XMS_ITS | Encounter Summary ---
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 Sex 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 Gender Identity Not on file Sexual Orientation Not on file documented as of this encounter Plan of Treatment Not on file documented as of this encounter Procedures Procedure Name Priority Date/Time Associated Diagnosis Comments CBC WITHOUT DIFFERENTIAL Routine 11/23/2012 1:50 PM CDT ALT Routine 11/23/2012 1:50 PM CDT TSH Routine 11/23/2012 1:50 PM CDT PSA Routine 11/23/2012 1:50 PM CDT HEMOGLOBIN A1C Routine 11/23/2012 1:50 PM CDT CREATININE Routine 11/23/2012 1:50 PM CDT LIPID PANEL Routine 11/23/2012 1:50 PM CDT documented in this encounter Results * PSA (11/23/2012 1:50 PM CDT) PSA 0.8 0.0 - 4.0 ng/mL 11/23/2012 11:31 PM CDT [facility] Blood specimen (specimen) 11/23/2012 1:50 PM CDT 11/23/2012 1:50 PM CDT External Provider Mtnv CHEMISTRY ORDERABLES Mary Grace l Result Performing Organization Address [facility] de Phone Number [facility] CLIA # [id number] [address] [place] [address] * CREATININE (11/23/2012 1:50 PM CDT) CREATININE 1.10 0.60 - 1.30 mg/dL 11/23/2012 11:32 PM CDT [facility] GFR 71 >=60 mL/min/1.7 3 sq meter 11/23/2012 11:32 PM CDT [facility] GFR, 87 >=60 mL/min/1.7 3 sq meter 11/23/2012 11:32 PM CDT [facility] Blood specimen (specimen) 11/23/2012 1:50 PM CDT 11/23/2012 1:50 PM CDT Narrative [facility] - 11/23/2012 11:32 PM CDT eGFR has not been validated for use in the elderly (> 70 years of age), women, patients with serious co-morbid conditions, or persons with extremes of body size or muscle mass and should also be interpreted with caution in patients with acute kidney failure, dialysis dependant patients, patients reporting exceptional dietary intake (e.g. vegetarian diet, high protein diets, creatine supplementation), and patients with severe liver disease. Based on National Kidney Disease Education Program us External Provider Mtnv CHEMISTRY ORDERABLES Mary Grace l Result Performing Organization Address [facility]/ZIP Co de Phone Number [facility] CLIA # [id number] [address] [place] [address] * (ABNORMAL) ALT (11/23/2012 1:50 PM CDT) ALT 132(H) 30 - 65 U/L 11/23/2012 11:32 PM CDT [facility] [place] Blood specimen (specimen) 11/23/2012 1:50 PM CDT 11/23/2012 1:50 PM CDT us External Provider Mtnv CHEMISTRY ORDERABLES Mary Grace l Result [facility] [place] CLIA # [id number] [address] [place] [address] * (ABNORMAL) CBC WITHOUT DIFFERENTIAL (11/23/2012 1:50 PM CDT) WBC 5.3 4.2 - 9.1 K/uL 11/23/2012 7:56 PM CDT [facility] [place] RBC 4.67 4.63 - 6.08 M/uL 11/23/2012 7:56 PM CDT [facility] [place] HEMOGLOBIN 14.8 13.7 - 17.5 g/dL 11/23/2012 7:56 PM CDT [facility] [place] HEMATOCRIT 43.8 40.1 - 51.0 % 11/23/2012 7:56 PM CDT [facility] [place] MCV 93.8(H) 79.0 - 92.2 fL 11/23/2012 7:56 PM CDT [facility] [place] MCH 31.7 25.7 - 32.2 pg 11/23/2012 7:56 PM CDT [facility] [place] MCHC 33.8 32.3 - 36.5 g/dL 11/23/2012 7:56 PM CDT [facility] [place] PLATELETS 190 130 - 400 K/uL 11/23/2012 7:56 PM CDT [facility] [place] MPV 12.2 10.0 - 14.8 fL 11/23/2012 7:56 PM CDT [facility] [place] RDW 13.7 11.0 - 14.5 % 11/23/2012 7:56 PM CDT [facility] [place] RDW-STDEV 45.4 37.0 - 54.0 fL 11/23/2012 7:56 PM CDT [facility] [place] Blood specimen (specimen) 11/23/2012 1:50 PM CDT 11/23/2012 1:50 PM CDT us External Provider Mtnv HEMATOLOGY ORDERABLES Fin al Result [facility] CLIA # [id number] [address] [place] [address] * TSH (11/23/2012 1:50 PM CDT) Pathologist [facility] TSH 1.55 0.30 - 4.80 uIU/mL 11/24/2012 9:52 AM CDT [facility] Blood specimen (specimen) 11/23/2012 1:50 PM CDT 11/23/2012 1:50 PM CDT External Provider Mtnv CHEMISTRY ORDERABLES Mary Grace l Result Performing Organization Address [facility] Co de Phone Number [facility] CLIA # [id number] [address] [place] [address] * HEMOGLOBIN A1C (11/23/2012 1:50 PM CDT) Pathologist [facility] HEMOGLOBIN A1C 5.8 4.5 - 6.2 % 11/25/2012 10:31 AM CDT [facility] EST. AVG GLUCOSE, A1C 120 mg/dL 11/25/2012 10:31 AM CDT [facility] Blood specimen (specimen) 11/23/2012 1:50 PM CDT 11/23/2012 1:50 PM CDT us External Provider Mtnv CHEMISTRY ORDERABLES Mary Grace l Result Performing Organization Address City/[facility]/ZIP Co de Phone Number [facility] CLIA # [id number] [address] [place] [address] * (ABNORMAL) LIPID PANEL (11/23/2012 1:50 PM CDT) Pathologist [facility] CHOLESTEROL 264(H) 130 - 200 mg/dL 11/23/2012 11:31 PM CDT [facility] TRIGLYCERIDE 96 30 - 200 mg/dL 11/23/2012 11:31 PM CDT [facility] HDL 56 35 - 80 mg/dL 11/23/2012 11:31 PM CDT [facility] LDL CALCULATED 189(H) 0 - 100 mg/dL 11/23/2012 11:31 PM T [facility] Blood specimen (specimen) 11/23/2012 1:50 PM CDT 11/23/2012 1:50 PM CDT Narrative [facility] - 11/23/2012 11:31 PM CDT TOTAL CHOLESTEROL mg/dL Desirable <200 Borderline high 200-239 High >=240 TRIGLYCERIDES mg/dL Normal <150 Borderline high 150-199 High 200-499 Very high >=500 HDL CHOLESTEROL mg/dL Low <40 Normal 40-60 Desirable >60 LDL CHOLESTEROL mg/dL Optimal <100 Low risk 100-129 Borderline high 130-159 High 160-189 Very high >=190 Based on AHA/NCEP Guidelines us External Provider Mtnv CHEMISTRY ORDERABLES Mary Grace l Result [facility] CLIA # [id number] [address] [facility] [address] [place] [address] documented in this encounter Visit Diagnoses Not on filedocumented in this encounter
--- OUTSIDE RECORDS SUMMARY | 2025-04-09 16:56 | XMS_ITS | Encounter Summary ---
Author Organization 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
--- NOTE | 2025-04-09 17:36 | ED_ITS ---
HPI - Chest Pain 2 General: Chief Complaint: Chest Pain Stated Complaint: chest pains Time Seen by Provider: 04/09/25 17:33 History of Present Illness: 60-year-old man who presents the emergen cy room after having checked out AMA from a different ER. Apparently he was there and had been direct admitted but did not want to take an ambulance so he left and had to check back into the emergency room here for evaluation before being admitted. He says about 10:30 AM he started having some left dull chest pain and some pain in between his shoulder blades. He was told at the outside hospital that his cardiac markers were positive. He is currently chest pain-free Related Data Home Medications ?Medication ?Instructions ?Recorded ?Confirmed hydrocodone 5 mg-acetaminophen 325 1 tab PO Q6H PRN Pa in 02/05/21 02/05/21 mg tablet Previous Rx's ?Medication ?Instructions ?Recorded azithromycin 250 mg tablet See Rx Instructions PO .COM PLEX #6 02/05/21 (Zithromax Z-Lew) tabs dexamethasone 6 mg tablet 6 mg PO DAILY #7 tabs (Decadron) Allergies Allergy/AdvReac Type Severity Reaction Status Date / Time No Known Allergies Allergy Verified 02/05/21 08:27 Review of Systems 2 Narrative: Constitutional symptoms: Negative except as documented in HPI. Skin symptoms: Negative except as documented in HPI. Eye symptoms: Negative except as documented in HPI. ENMT symptoms: Negative except as documented in HPI. Respiratory symptoms: Negative except as documented in HPI. Cardiovascular symptoms: Negative except as documented in HPI. Gastrointestinal symptoms: Negative except as documented in HPI. Genitourinary symptoms: Negative except as documented in HPI. Musculoskeletal symptoms: Negative except as documented in HPI. Neurologic symptoms: Negative except as documented in HPI. Psychiatric symptoms: Negative except as documented in HPI. Endocrine symptoms: Negative except as documented in HPI. PFSH ED 2 PFSH: Medical History (Updated 04/09/25 @ 17:55 by Yousif Packer MD) No pertinent past medical history Family History (Updated 04/09/25 @ 17:55 by Yousif Packer MD) Father CAD (coronary artery disease) Mother CAD (coronary artery disease) Social History (Updated 04/09/25 @ 17:56 by Yousif Packer MD) Smoking and tobacco/nicotine status: never used tobacco/nicotine Alcohol intake: never Substance/Drug Use: never Physical Exam 2 Narrative: EXAM NARRATIVE: General: Alert, no acute distress. Skin: Warm, dry. Head: Normocephalic, atraumatic. Neck: Supple, trachea midline. Eye: Extraocular movements are intact. Ears, nose, mouth and throat: mucosa moist. Cardiovascular: Regular, Normal peripheral perfusion. Respiratory: Lungs are clear to auscultation, respirations are non-labored, breath sounds are equal, Symmetrical chest wall expansion. Gastrointestinal: Soft, Nontender, Non distended Musculoskeletal: Normal ROM, no deformity. Neurological: Alert and oriented, No focal neurological deficit observed. Psychiatric: Cooperative, appropriate mood & affect. Course 2 Vital Signs: Vital signs: Vital Signs Temperature 98.3 F 04/09/25 16:38 Pulse Rate 60 04/09/25 16:38 Respiratory Rate 16 04/09/25 16:38 Blood Pressure 153/91 04/09/25 16:38 Pulse Oximetry 97 04/09/25 16:38 Oxygen Delivery Me thod Room Air 04/09/25 16:38 MDM - Chest Pain Medical Decision Making Differential diagnosis for patient with chest pain includes but is not limited to and based on the above HPI, review of systems and physical exam: Pneumonia. unstable angina. angina. Acute coronary syndrome / MS. Pulmonary embolism. Costochondritis / musculoskeletal. Pleurisy. Pericarditis. Esophageal spasm. Pancreatis. Cholecystitis. Orders placed to evaluate differential diagnosis based on the above differential, HPI and physical exam EKG: Time 1643. Rate 60. Normal sinus rhythm, nonspecific ST changes, PVCs,, normal CT & QRS intervals, This was reviewed and interpreted by myself the ER physician Lab Review: Laboratory results were reviewed and interpreted by myself the emergency room physician. No leukocytosis. No anemia. Initial troponin is pending at admission. I reviewed the patient's medical record. Consultation: I spoke with Dr. Packer who is on-call for the hospitalist service who agrees to admission. Assessment and plan: Chest pain -I discussed the patient with the hospitalist on-call who is admitting the patient. - Discussed findings and plan with patient. Answered any questions. - All laboratory values were reviewed and interpreted personally by myself, the ER physician - Evaluation and treatment of this problem were appropriate in the emergency setting Lab Data 04/09/25 17:07 04/09/25 17:07 Laboratory Results WBC 5.78 10^3/uL (3.29-11.43) 04/09/25 17:07 RBC 4.52 10^6/uL (3.85-5.65) 04/09/25 17:07 Hgb 14.30 g/dL (11.27-16.99) 04/09/25 17:07 Hct 42.6 % (37-53) 04/09/25 17:07 MCV 94.2 fl (82-101) 04/09/25 17:07 MCH 31.6 pg (27-33) 04/09/25 17:07 MCHC 33.6 g/dL (30-55) 04/09/25 17:07 RDW 12.5 % (12.1-15.1) 04/09/25 17:07 Plt Count 133 10^3/cmm (157-399) L 04/09/25 17:07 MPV 11.3 fL (7.4-10.4) H 04/09/25 17:07 Neut % (Auto) 55.1 % 04/09/25 17:07 Lymph % (Auto) 29.4 % 04/09/25 17:07 Kerr % (Auto) 11.9 % 04/09/25 17:07 Eos % (Auto) 2.4 % 04/09/25 17:07 Baso % (Auto) 0.9 % 04/09/25 17:07 Neut # (Auto) 3.18 10^3/uL (1.8-7.7) 04/09/25 17:07 Lymph # (Auto) 1.7 10^3/uL (0.8-4.8) 04/09/25 17:07 Kerr # (Auto) 0.7 10^3/uL (0.2-0.9) 04/09/25 17:07 Eos # (Auto) 0.1 10^3/uL (0.0-0.8) 04/09/25 17:07 Baso # (Auto) 0.1 10^3/uL (0.0-0.1) 04/09/25 17:07 Nucleated RBC % (auto) 0 % 04/09/25 17:07 Nucleated RBCs # 0.0 /100WBC 04/09/25 17:07 Sodium 140 mmol/L (136-145) 04/09/25 17:07 Potassium 4.0 mmol/L (3.5-5.1) 04/09/25 17:07 Chloride 102 mmol/L (98-107) 04/09/25 17:07 Alkaline Phosphatase 77 U/L (40-130) 04/09/25 17:07 Troponin T Baseline 75 ng/L (0-15) H 04/09/25 17:07 Albumin 4.3 g/dL (3.5-5.2) 04/09/25 17:07 No radiology studies performed this visit Discharge Plan Discharge Patient Disposition: Admitted As Inpatient Admit Provider: Yousif Packer Clinical Impression: Chest pain Condition: Stable Coding Level of Care Code ED Children'S Program Coordinator for Sheryl Simpson
[2025-04-09 17:43] LABS: Hematocrit 42.6 % (37-53); Hemoglobin 14.30 g/dL (11.27-16.99); Mean Corpuscular HGB Conc 33.6 g/dL (30-55); Mean Corpuscular Hemoglobin 31.6 pg (27-33); Mean Corpuscular Volume 94.2 fl (82-101); Nucleated Red Blood Cells % 0 %; Platelet Count 133 10^3/cmm (157-399); Red Blood Count 4.52 10^6/uL (3.85-5.65); White Blood Count 5.78 10^3/uL (3.29-11.43)
--- NOTE | 2025-04-09 17:54 | PM.HP ---
Providers/Chief Complaint Primary Care Provider: Leeroy Alvarez MD Chief Complaint: chest pains History of Present Illness Tyler Miranda is a 60 year old male with no significant past medical history, who presents [facility] for chest pain. Patient was at [facility], where he had presented for chest pain, he was told he received aspirin, there was EKG changes and a positive delta troponin, he was started on a heparin drip, and was awaiting transfer to [facility] where he left AGAINST MEDICAL ADVICE. Currently he is seen in the emergency room chest pain-free, does report substernal chest pain, fatigue, malaise, does report intermittent shortness of breath, no lightheadedness, no dizziness, no nausea, no vomiting. His initial EKG does not show any acute ST-T wave changes, his blood work currently is pending, troponin pending, he has been started on a heparin drip Review of Systems Card: Denies: chest pain Resp: Denies: dyspnea Medications/Allergies Home Medications ?Medication ?Instructions ?Recorded ?Confirmed ?Last Taken ?Type azithromycin 250 mg tablet See Rx Instructions PO .COMPLEX #6 02/05/21 Unknown Rx (Zithromax Z-Lew) tabs dexamethasone 6 mg tablet 6 mg PO DAILY #7 tabs 02/05/21 Unknown Rx (Decadron) hydrocodone 5 mg-acetaminophen 325 1 tab PO Q6H PRN Pain 02/05/21 02/05/21 02/05/21 History mg tablet Allergies Allergy/AdvReac Type Severity Reaction Status Date / Time No Known Allergies Allergy Verified 02/05/21 08:27 PFSH Acute PFSH: Medical History (Updated 04/09/25 @ 17:55 by Yousif Packer MD) No pertinent past medical history Family History (Updated 04/09/25 @ 17:55 by Yousif Packer MD) Father CAD (coronary artery disease) Mother CAD (coronary artery disease) Social History (Updated 04/09/25 @ 17:56 by Yousif Packer MD) Smoking and tobacco/nicotine status: never used tobacco/nicotine Alcohol intake: never Substance/Drug Use: never Vitals/I&O/Wt Last Vital Signs Temp 98.3 F 04/09/25 16:38 Pulse 60 04/09/25 16:38 Resp 16 04/09/25 16:38 BP 153/91 09/25/25 16:38 Pulse Ox 97 04/09/25 16:38 O2 Del Method Room Air 04/09/25 16:38 Weight last 48 hrs Weight 89.358 kg Physical Exam Const: COMMON NORMALS: no acute distress and patient oriented x3 HENMT: COMMON NORMALS: normocephalic HEAD & SCALP: normocephalic Eye: COMMON NORMALS: Equal, round and reactive pupils present Resp: COMMON NORMALS: normal respiratory effort, No retractions, No use of accessory muscles and clear to auscultation bilaterally AUSCULTATION: clear to auscultation bilaterally Cardio: COMMON NORMALS: regular rate, regular rhythm, S1 normal heart sound present and S2 normal heart sound present RATE: regular rate RHYTHM: regular rhythm HEART SOUNDS: S1 normal heart sound present and S2 normal heart sound present GI: COMMON NORMALS: Normal to inspection, nondistended, normoactive bowel sounds present, Soft to palpation and non-tender Extremity: COMMON NORMALS: no calf tenderness and no pedal edema Neuro: COMMON NORMALS: patient oriented x3, CN's II-XII intact bilaterally and moves all extremities Psych: COMMON NORMALS: mental status grossly normal Data 04/09/25 17:07 04/09/25 17:07 A&P Assessment and plan 1. Chest pain: Plan: - Chest pain - Serial EKGs, short troponins, telemetry monitoring - Has received aspirin at [facility], aspirin 81 mg daily - Atorvastatin - Coreg - Heparin drip - Nitro as needed for chest pain - Cardiac echo - N.p.o. midnight for stress test tomorrow - Full code - Heparin drip for DVT prophylaxis PDMP PDMP Reviewed: Not Reviewed Attestations Medical Necessity Statement*: Patient requires hospitalization, outpatient with observation, for chest pain Diagnoses Chest pain R07.9
[2025-04-09 17:55] LABS: Albumin Level 4.3 g/dL (3.5-5.2); Alkaline Phosphatase 77 U/L (40-130); Chloride 102 mmol/L (98-107); Potassium 4.0 mmol/L (3.5-5.1); Sodium 140 mmol/L (136-145)
[2025-04-09 18:02] LABS: Troponin(5th) Baseline 75 ng/L (0-15)
[2025-04-09 18:21] LABS: Alanine Aminotransferase 59 U/L (0-41); Anion Gap 17.0 (5-19); Aspartate Amino Transferase 53 U/L (0-40); Blood Urea Nitrogen 16 mg/dL (8-23); Calcium 9.0 mg/dL (8.5-10.5); Carbon Dioxide 25 mmol/L (22-29); Creatinine Clr Calc Pharmacy 124.6808; Globulin 2.6 g/dL (1.3-4.6); Glucose 95 mg/dL (65-115); NT Pro B Type Natriuretic Pept 170 pg/mL (0-125); Osmolality Calculated 291 mOsm/kg (285-295); Total Protein 6.9 g/dL (6.6-8.7)
[2025-04-09 18:54] VITALS: BP 165/90; PULSE 54; RESP 14; O2SAT 99
[2025-04-09] MEDS: heparin 5,000 unit/mL INJ 1 mL IVP (19:06)
[2025-04-09] MEDS: heparin drip 25,000 UNIT/500 ML PREMIX 25 UNIT IV (19:08)
[2025-04-09 19:22] LABS: Troponin 5 2HR 70.46 ng/L (0-15); Troponin 5 2HR Delta -4.54 ABS# (0-10)
[2025-04-09 19:31] VITALS: BP 155/90; PULSE 53; RESP 15; TEMP 36.8; O2SAT 99
--- NOTE | 2025-04-09 19:31 | ECG_ITS ---
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 The perfusion scan will be documented separately. DATA: Baseline heart rate was 58 beats per minute. Baseline blood pressure was 138/77 millimeters of mercury. Target heart rate was 159. Maximum heart rate achieved was 90. which was 56% of the predicted target heart rate. Maximum blood pressure was 138/86 millimeters of mercury. The reason for ending the test was completion of the protocol. The patient did not experience any symptoms. ELECTROCARDIOGRAM: BASELINE: Sinus rhythm. Left axis. Right bundle branch block, nonspecific inferolateral T wave inversion EXERCISE: After Lexiscan injection, no more than what is present at the baseline ST-T changes suggestive of ischemic noted. No arrhythmia noted. CONCLUSION: Please note due to baseline abnormality of the EKG specificity and sensitivity of the EKG portion of LexiScan MIBI stress test will be low 1. EKG not suggestive of ischemia 2. Lexiscan injection unremarkable. 3. Perfusion scan will be documented separately. Electronically Signed On 04-10-2025 15:39:42 CDT by JEIMY KEYS [email or web address]
[2025-04-09 19:43] VITALS: BMI 27.6
[2025-04-09 19:47] VITALS: BP 163/97; PULSE 55; RESP 20; O2SAT 98
[2025-04-09 19:54] LABS: Estmated Average Glucose 117; Hemoglobin A1C 5.7 % (4.0-6.0)
[2025-04-09 20:00] VITALS: BP 163/97; PULSE 55; RESP 20
[2025-04-09 20:08] LABS: Cholesterol 267 mg/dL (0-200); HDL Cholesterol 86 mg/dL (60-100); Thyroid Stimulating Hormone 3.10 uIU/mL (0.27-4.20); Triglycerides 90 mg/dL (0-150)
[2025-04-09] MEDS: pantoprazole 40 mg SDV IVP (20:34)
[2025-04-09 20:44] VITALS: O2SAT 97
--- NOTE | 2025-04-09 20:49 | ECG_ITS ---
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: : 1965 Requested By: Milagros Hinds Order Number: [id number] Cruz MD: JEIMY KEYS Measurements Intervals [place] Rate: 56 P: 55 AR: 141 QRS: -64 QRSD: 130 T: -20 QT: 439 QTc: 425 Interpretive Statements SINUS BRADYCARDIA POSSIBLE RIGHT VENTRICULAR CONDUCTION DELAY [RSR (QR) IN V1/V2] LEFT ANTERIOR FASCICULAR BLOCK [QRS AXIS <= -45, QR IN I, RS IN II] MODERATE VOLTAGE CRITERIA FOR LVH, CONSIDER NORMAL VARIANT [MEETS CRITERIA IN ONE OF: R(aVL), S(V1), R(V5), R(V5/V6)+S(V1)] POSSIBLE SEPTAL MYOCARDIAL INFARCTION , PROBABLY OLD [30 ms Q WAVE IN V1/V2] Compared to ECG 04/09/2025 16:43:44 Sinus rhythm no longer present Ventricular premature complex(es) no longer present Myocardial infarct finding still present Electronically Signed On 04-11-2025 21:41:38 CDT by JEIMY KEYS [email or web address]
--- NOTE | 2025-04-09 22:58 | ECG_ITS ---
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: : 1965 Requested By: Milagros Hinds Order Number: [id number] Cruz MD: JEIMY KEYS Measurements Intervals [place] Rate: 61 P: 53 MI: 140 QRS: -61 QRSD: 127 T: -12 QT: 425 QTc: 431 Interpretive Statements SINUS RHYTHM POSSIBLE RIGHT VENTRICULAR CONDUCTION DELAY [RSR (QR) IN V1/V2] LEFT ANTERIOR FASCICULAR BLOCK [QRS AXIS <= -45, QR IN I, RS IN II] MODERATE VOLTAGE CRITERIA FOR LVH, CONSIDER NORMAL VARIANT [MEETS CRITERIA IN ONE OF: R(aVL), S(V1), R(V5), R(V5/V6)+S(V1)] POSSIBLE SEPTAL MYOCARDIAL INFARCTION , PROBABLY OLD [30 ms Q WAVE IN V1/V2] Compared to ECG 04/09/2025 20:49:39 Sinus bradycardia no longer present Myocardial infarct finding still present Electronically Signed On 04-11-2025 21:41:30 CDT by JEIMY KEYS [email or web address]
[2025-04-09 23:19] LABS: Troponin 5 6HR 62.12 ng/L (0-15)
[2025-04-09 23:23] LABS: Troponin 5 6HR Delta -12.88 ng/L (0-12)
[2025-04-10] VITALS (58 sets, daily range): BP systolic 127–147; BP diastolic 68–87; PULSE 55–96; RESP 12–23; TEMP 36.4–36.9; O2SAT 91–99
[2025-04-10 01:07] LABS: Hematocrit 39.5 % (37-53); Hemoglobin 13.20 g/dL (11.27-16.99); Mean Corpuscular HGB Conc 33.4 g/dL (30-55); Mean Corpuscular Hemoglobin 31.5 pg (27-33); Mean Corpuscular Volume 94.3 fl (82-101); Nucleated Red Blood Cells % 0 %; Platelet Count 119 10^3/cmm (157-399); Red Blood Count 4.19 10^6/uL (3.85-5.65); White Blood Count 5.26 10^3/uL (3.29-11.43)
[2025-04-10 01:25] LABS: Anion Gap 13.6 (5-19); Blood Urea Nitrogen 17 mg/dL (8-23); Calcium 8.7 mg/dL (8.5-10.5); Carbon Dioxide 25 mmol/L (22-29); Chloride 104 mmol/L (98-107); Creatinine Clr Calc Pharmacy 123.2870; Glucose 130 mg/dL (65-115); Osmolality Calculated 291 mOsm/kg (285-295); Potassium 3.6 mmol/L (3.5-5.1); Sodium 139 mmol/L (136-145)
[2025-04-10 01:28] LABS: Partial Thromboplastin Time 126.4 SECONDS (23.9-36.7)
--- OUTSIDE RECORDS SUMMARY | 2025-04-10 07:58 | XMS_ITS | Encounter Summary ---
Author Organization [facility] Address [address] [place] [address] Care Team Providers Care Automotive Worker Name Role Phone Unavailable Primary Care Provider Unavailabl e Encounter Details Date Type Department Care Team (Late st Contact Info) Description 03/30/1999 Outpatient Historical [facility] [address], [address] [place] [address] Social History Tobacco Use Types Packs/Day Years Used Date Smoking Tobacco: Never Assessed Sex and Gender Information Value Date Recorded Sex Assigned at Not on file 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
--- OUTSIDE RECORDS SUMMARY | 2025-04-10 07:58 | XMS_ITS | Encounter Summary ---
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
--- OUTSIDE RECORDS SUMMARY | 2025-04-10 07:58 | XMS_ITS | Encounter Summary ---
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
--- OUTSIDE RECORDS SUMMARY | 2025-04-10 07:58 | XMS_ITS | Encounter Summary ---
Author Organization [facility] Address [address] [place] [address] Care Team Providers Care Prep Cook Name Role Phone Unavailable Primary Care Provider Unavailabl e Encounter Details Date Type Department Care Team (Latest Contact Info) Description 05/18/2003 Outpatient Historical [facility] [address] [place] [address] Duke Storey MD [address] [address] JOINT PAIN-L/LEG (Primary Dx) Social History Tobacco Use Types Packs/Day Years Used Date Smoking Tobacco: Never Assessed Sex and Gender Information Value Date Recorded Sex Assigned at Not on file 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
--- OUTSIDE RECORDS SUMMARY | 2025-04-10 07:59 | XMS_ITS | Encounter Summary ---
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
--- OUTSIDE RECORDS SUMMARY | 2025-04-10 07:59 | XMS_ITS | Encounter Summary ---
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
--- OUTSIDE RECORDS SUMMARY | 2025-04-10 07:59 | XMS_ITS | Encounter Summary ---
Author Organization [facility] Address [address] [place] [address] Care Team Providers Care Gauntlet Pairer Name Role Phone Unavailable Primary Care Provider Unavailabl e Encounter Details Date Type Department Care Team (Late st Contact Info) Description 04/06/2017 Lab Requisition [facility] General Laboratory Services [place] [address] [place] [phone] Mtnv, External Provider [address] [facility] [address] [place] [address] Social History Tobacco Use Types Packs/Day Years Used Date Smoking Tobacco: Never Assessed Sex and Gender Information Value Date Recorded Sex Assigned at Not on file 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 POTASSIUM 4.3 3.5 - 5.1 mmol/L 04/06/2017 11:[address] [facility] CHLORIDE 100 98 - 107 mmol/L 04/06/2017 11:45 AM [facility] CO2 25 22 - 29 mmol/L 04/06/2017 11:45 AM [facility] CALCIUM 9.0 8.6 - 10.0 mg/dL 04/06/2017 11:45 AM [facility] BUN 12 6 - 20 mg/dL 04/06/2017 11:45 AM [facility] CREATININE 0.86 0.67 - 1.17 mg/dL 04/06/2017 11:45 AM [facility] GLUCOSE 109(H) 74 - 106 mg/dL 04/06/2017 11:45 AM [facility] TOTAL PROTEIN 7.9 6.6 - 8.7 g/dL 04/06/2017 11:45 AM [facility] ALBUMIN 4.6 3.5 - 5.2 g/dL 04/06/2017 11:45 AM [facility] BILIRUBIN TOTAL 0.7 0.0 - 1.2 mg/dL 04/06/2017 11:45 AM [facility] ALKALINE PHOSPHATASE 87 40 - 129 U/L 04/06/2017 11:45 AM [facility] AST 57(H) 10 - 50 U/L 04/06/2017 11:45 AM [facility] ALT 93(H) 10 - 50 U/L 04/06/2017 11:45 AM [facility] GFR >60 >=60 mL/min/1.7 3 sq meter 04/06/2017 11:45 AM [facility] Comment: eGFR has not been [...] 3 sq meter 04/06/2017 11:[address] [facility] ANION GAP 14 12 - 20 mmol/L 04/06/2017 11:[address] [facility] Blood Venipuncture / Unknown 04/06/2017 8:15 AM CDT 04/06/2017 11:11 AM CDT External Provider Mtnv CHEMISTRY ORDERABLES Mary Grace l Result [facility] CLIA # [id number] [address] [place] [address] * (ABNORMAL) LIPID PANEL (04/06/2017 8:15 AM CDT) CHOLESTEROL 276(H) <200 mg/dL 04/06/2017 11:[address] [facility] TRIGLYCERIDE 318(H) <150 mg/dL 04/06/2017 11:[address] [facility] HDL 50 40 - 59 mg/dL 04/06/2017 11:[address] [facility] LDL CALCULATED 162(H) <100 mg/dL 04/06/2017 11:[address] [facility] NON-HDL CHOLESTEROL 226(H) <130 mg/dL 04/06/2017 11:[address] [facility] Blood Venipuncture / Unknown 04/06/2017 8:15 AM CDT 04/06/2017 11:[address] [facility] - 04/06/2017 11:45 AM CDT TOTAL CHOLESTEROL [...] Mtnv CHEMISTRY ORDERABLES Mary Grace l Result [facility] CLIA # [id number] [address] [place] [address] * (ABNORMAL) CBC WITH DIFFERENTIAL (04/06/2017 8:15 AM CDT) WBC 6.3 4.2 - 9.1 K/uL 04/06/2017 11:44 AM [facility] RBC 5.07 4.63 - 6.08 M/uL 04/06/2017 11:44 AM [facility] HEMOGLOBIN 16.4 13.7 - 17.5 g/dL 04/06/2017 11:44 AM [facility] HEMATOCRIT 47.3 40.1 - 51.0 % 04/06/2017 11:44 AM [facility] MCV 93.3(H) 79.0 - 92.2 fL 04/06/2017 11:44 AM [facility] MCH 32.3(H) 25.7 - 32.2 pg 04/06/2017 11:44 AM [facility] MCHC 34.7 32.3 - 36.5 g/dL 04/06/2017 11:44 AM [facility] RDW 13.0 11.0 - 14.5 % 04/06/2017 11:44 AM [facility] RDW-STDEV 43.4 36.9 - 56.9 fL 04/06/2017 11:44 AM [facility] PLATELETS 170 130 - 400 K/uL 04/06/2017 11:44 AM [facility] MPV 12.5 10.0 - 14.8 fL 04/06/2017 11:44 AM [facility] NEUTROPHILS 51 34 - 68 % 04/06/2017 11:44 AM [facility] LYMPHOCYTES 33 22 - 53 % 04/06/2017 11:44 AM [facility] MONOCYTES 12 5 - 12 % 04/06/2017 11:44 AM [facility] EOSINOPHILS 4 1 - 7 % 04/06/2017 11:[address] [facility] BASOPHILS 1 0 - 1 % 04/06/2017 11:[address] [facility] IMMATURE GRANULOCYTES 0 % 04/06/2017 11:44 AM [facility] NEUTROPHIL ABSOLUTE 3.21 1.78 - 5.38 K/uL 04/06/2017 11:44 AM [facility] LYMPHOCYTE ABSOLUTE 2.09 1.20 - 3.40 K/uL 04/06/2017 11:[address] [facility] MONOCYTE ABSOLUTE 0.73 0.30 - 0.82 K/uL 04/06/2017 11:44 AM [facility] EOSINOPHIL ABSOLUTE 0.23 0.04 - 0.54 K/uL 04/06/2017 11:44 AM [facility] BASOPHILS ABSOLUTE 0.05 0.01 - 0.08 K/uL 04/06/2017 11:44 AM [facility] IMMATURE GRANULOCYTES ABSOLUTE 0.02 K/uL 04/06/2017 11:44 AM [facility] Blood Venipuncture / Unknown 04/06/2017 8:15 AM CDT 04/06/2017 11:11 AM CDT us External Provider Mtnv HEMATOLOGY ORDERABLES Fin al Result [facility] CLIA # [id number] [address] [place] [address] * PSA MEDICARE SCREEN (04/06/2017 8:15 AM CDT) PSA 0.8 0.0 - 3.1 ng/mL 04/06/2017 11:[address] [facility] Blood Venipuncture / Unknown 04/06/2017 8:15 AM CDT 04/06/2017 11:11 AM CDT us External Provider Mtnv CHEMISTRY ORDERABLES COM Final Result [facility] CLIA # [id number] [address] [place] [address] documented in this encounter Visit Diagnoses Not on filedocumented in this encounter
--- OUTSIDE RECORDS SUMMARY | 2025-04-10 07:59 | XMS_ITS | Encounter Summary ---
Author Organization [facility] Address [address] [place] [address] Care Team Providers Care Tire Changer Aircraft Name Role Phone Unavailable Primary Care Provider Unavailabl e Encounter Details Date Type Department Care Team (Latest Contact Info) Description 09/17/1998 [facility] [address] [place] [phone] Manuel May, DO [address] [place] [address] Toxic effect venom (Primary Dx) Social History Tobacco Use Types Packs/Day Years Used Date Smoking Tobacco: Never Assessed Sex and Gender Information Value Date Recorded Sex Assigned at Not on file 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
--- OUTSIDE RECORDS SUMMARY | 2025-04-10 07:59 | XMS_ITS | Encounter Summary ---
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
--- OUTSIDE RECORDS SUMMARY | 2025-04-10 07:59 | XMS_ITS | Encounter Summary ---
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 Sex Male 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 Gender Identity Not on file Sexual Orientation [...] 136 - 145 mmol/L 04/05/2018 11:21 AM [facility] POTASSIUM 4.3 3.5 - 5.1 mmol/L 04/05/2018 11:21 AM [facility] CHLORIDE 100 98 - 107 mmol/L 04/05/2018 11:21 AM [facility] CO2 28 22 - 29 mmol/L 04/05/2018 11:21 AM [facility] CALCIUM 8.8 8.6 - 10.0 mg/dL 04/05/2018 11:21 AM [facility] BUN 16 6 - 20 mg/dL 04/05/2018 11:21 AM [facility] CREATININE 1.06 0.67 - 1.17 mg/dL 04/05/2018 11:21 AM [facility] GLUCOSE 110(H) 74 - 99 mg/dL 04/05/2018 11:21 AM [facility] TOTAL PROTEIN 7.0 6.6 - 8.7 g/dL 04/05/2018 11:21 AM [facility] ALBUMIN 4.2 3.5 - 5.2 g/dL 04/05/2018 11:21 AM [facility] BILIRUBIN TOTAL 0.4 0.0 - 1.2 mg/dL 04/05/2018 11:21 AM [facility] ALKALINE PHOSPHATASE 85 40 - 129 U/L 04/05/2018 11:21 AM [facility] AST 36 10 - 50 U/L 04/05/2018 11:21 AM [facility] ALT 43 10 - 50 U/L 04/05/2018 11:21 AM [facility] GFR >60 >=60 mL/min/1.7 3 sq meter 04/05/2018 11:21 AM [facility] Comment: eGFR has not [...] 3 sq meter 04/05/2018 11:21 AM T [facility] ANION GAP 11(L) 12 - 20 mmol/L 04/05/2018 11:21 AM T [facility] Blood Collection / Unknown 04/05/2018 7:35 AM CDT 04/05/2018 9:22 AM CDT us Reyna Alamo MD CHEMISTRY ORDERABLES F inal Result [facility] CLIA # [id number] [address] [place] [address] * (ABNORMAL) LIPID PANEL (04/05/2018 7:35 AM CDT) CHOLESTEROL 248(H) <200 mg/dL 04/05/2018 11:21 AM T [facility] TRIGLYCERIDE 186(H) <150 mg/dL 04/05/2018 11:21 AM [facility] HDL 48 40 - 59 mg/dL 04/05/2018 11:21 AM [facility] LDL CALCULATED 163(H) <100 mg/dL 04/05/2018 11:21 AM [facility] NON-HDL CHOLESTEROL 200(H) <130 mg/dL 04/05/2018 11:21 AM T [facility] Blood Collection / Unknown 04/05/2018 7:35 AM CDT 04/05/2018 9:22 AM CDT Narrative [facility] - 04/05/2018 11:21 AM CDT TOTAL CHOLESTEROL [...] Ranges for Lipid Panels (NCEP/AMA) us Reyna Aalmo MD CHEMISTRY ORDERABLES F inal Result [facility] CLIA # [id number] [address] [address] * (ABNORMAL) CBC WITH DIFFERENTIAL (04/05/2018 7:35 AM CDT) WBC 7.5 4.2 - 9.1 K/uL 04/05/2018 10:48 AM T [facility] RBC 5.08 4.63 - 6.08 M/uL 04/05/2018 10:48 AM [facility] HEMOGLOBIN 15.7 13.7 - 17.5 g/dL 04/05/2018 10:48 AM [facility] HEMATOCRIT 47.5 40.1 - 51.0 % 04/05/2018 10:48 AM [facility] MCV 93.5(H) 79.0 - 92.2 fL 04/05/2018 10:48 AM [facility] MCH 30.9 25.7 - 32.2 pg 04/05/2018 10:48 AM [facility] MCHC 33.1 32.3 - 36.5 g/dL 04/05/2018 10:48 AM [facility] RDW 12.9 11.0 - 14.5 % 04/05/2018 10:48 AM [facility] RDW-STDEV 42.8 36.9 - 56.9 fL 04/05/2018 10:48 AM [facility] PLATELETS 157 130 - 400 K/uL 04/05/2018 10:48 AM [facility] MPV 12.2 10.0 - 14.8 fL 04/05/2018 10:48 AM [facility] NEUTROPHILS 56 34 - 68 % 04/05/2018 10:48 AM [facility] LYMPHOCYTES 24 22 - 53 % 04/05/2018 10:48 AM [facility] MONOCYTES 12 5 - 12 % 04/05/2018 10:48 AM [facility] EOSINOPHILS 6 1 - 7 % 04/05/2018 10:48 AM [facility] BASOPHILS 1 0 - 1 % 04/05/2018 10:48 AM [facility] IMMATURE GRANULOCYTES 0 % 04/05/2018 10:48 AM [facility] NEUTROPHIL ABSOLUTE 4.21 1.78 - 5.38 K/uL 04/05/2018 10:48 AM [facility] LYMPHOCYTE ABSOLUTE 1.82 1.20 - 3.40 K/uL 04/05/2018 10:48 AM [facility] MONOCYTE ABSOLUTE 0.90(H) 0.30 - 0.82 K/uL 04/05/2018 10:48 AM [facility] EOSINOPHIL ABSOLUTE 0.45 0.04 - 0.54 K/uL 04/05/2018 10:48 AM [facility] BASOPHILS ABSOLUTE 0.05 0.01 - 0.08 K/uL 04/05/2018 10:48 AM [facility] IMMATURE GRANULOCYTES ABSOLUTE 0.03 K/uL 04/05/2018 10:48 AM [facility] Blood Collection / Unknown 04/05/2018 7:35 AM CDT 04/05/2018 9:22 AM CDT us Reyna Alamo MD HEMATOLOGY ORDERABLES Final Result [facility] CLIA # [id number] [address] [place] [address] * PSA MEDICARE SCREEN (04/05/2018 7:35 AM CDT) PSA 0.6 0.0 - 3.1 ng/mL 04/05/2018 11:07 AM T [facility] Blood Collection / Unknown 04/05/2018 7:35 AM CDT 04/05/2018 9:22 AM CDT us Reyna Alamo MD CHEMISTRY ORDERABLES C OM Final Result Performing Organization Address City/[facility]/ZIP Co de Phone Number [facility] CLIA # [id number] [address] [place] [address] * TSH (04/05/2018 7:35 AM CDT) Pathologist [facility] TSH 2.50 0.27 - 4.20 uIU/mL 04/05/2018 11:07 AM CDT [facility] Blood Collection / Unknown 04/05/2018 7:35 AM CDT 04/05/2018 9:22 AM CDT us Reyna Alamo MD CHEMISTRY ORDERABLES F inal Result Performing Organization Address [facility] Co de Phone Number [facility] CLIA # [id number] [address] [place] [address] * HEMOGLOBIN A1C (04/05/2018 7:35 AM CDT) Pathologist [facility] HEMOGLOBIN A1C 5.5 4.8 - 5.9 % 04/05/2018 11:23 AM CDT [facility] EST. AVG GLUCOSE, A1C 111 mg/dL 04/05/2018 11:23 AM CDT [facility] Blood Collection / Unknown 04/05/2018 7:35 AM CDT 04/05/2018 9:22 AM CDT [facility] - 04/05/2018 11:23 AM CDT HGB A1C INTERPRETATION NORMAL: <5.7% PRE-DIABETES: 5.7 - 6.4% DIABETES: 6.5% OR GREATER us Reyna Alamo MD CHEMISTRY ORDERABLES F inal Result Performing Organization Address City/[facility]/ZIP Co de Phone Number [facility] CLIA # [id number] [address] [place] [address] documented in this encounter Visit Diagnoses Not on filedocumented in this encounter
--- OUTSIDE RECORDS SUMMARY | 2025-04-10 07:59 | XMS_ITS | Encounter Summary ---
Author Organization [facility] Address [address] [place] [address] Care Team Providers Care Deputy Fire Chief Name Role Phone Unavailable Primary Care Provider Unavailabl e Encounter Details Date Type Department Care Team (Latest Contact Info) Description 09/07/2004 Outpatient Historical [facility] [address] [place] [address] Juliet Lopez, GARMENT FINISHER [address] [place] [phone] ACUTE URI NOS (Primary Dx); ACUTE SINUSITIS NOS Social History Tobacco Use Types Packs/Day Years Used Date Smoking Tobacco: Never Assessed Sex and Gender Information Value Date Recorded Sex Assigned at Not on file 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
--- OUTSIDE RECORDS SUMMARY | 2025-04-10 07:59 | XMS_ITS | Clinical Summary ---
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
--- OUTSIDE RECORDS SUMMARY | 2025-04-10 07:59 | XMS_ITS | Encounter Summary ---
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 Gender Identity Not on file Sexual [...] - 4.0 ng/mL 11/23/2012 11:31 PM CDT [facility] Blood specimen (specimen) 11/23/2012 1:50 PM CDT 11/23/2012 1:50 PM CDT External Provider Mtnv CHEMISTRY ORDERABLES Mary Grace l Result Performing Organization Address [facility] de Phone Number [facility] CLIA # [id number] [address] [place] [address] * CREATININE (11/23/2012 1:50 PM CDT) CREATININE 1.10 0.60 - 1.30 mg/dL 11/23/2012 11:32 PM CDT [facility] GFR 71 >=60 mL/min/1.7 3 sq meter 11/23/2012 11:32 PM CDT [facility] GFR, 87 >=60 mL/min/1.7 3 sq meter 11/23/2012 11:32 PM CDT [facility] Blood specimen (specimen) 11/23/2012 1:50 PM CDT 11/23/2012 1:50 PM CDT Narrative [facility] - 11/23/2012 11:32 PM CDT eGFR has [...] Mary Grace l Result Performing Organization Address [facility]/ZIP Co de Phone Number [facility] CLIA # [id number] [address] [place] [address] 20649 * (ABNORMAL) ALT (11/23/2012 1:50 PM CDT) ALT 132(H) 30 - 65 U/L 11/23/2012 11:32 PM CDT [facility] [place] Blood specimen (specimen) 11/23/2012 1:50 PM CDT 11/23/2012 1:50 PM CDT us External Provider Mtnv CHEMISTRY ORDERABLES Mary Grace l Result [facility] [place] CLIA # [id number] [address] [place] [address] 45689 * (ABNORMAL) CBC WITHOUT DIFFERENTIAL (11/23/2012 1:50 PM CDT) WBC 5.3 4.2 - 9.1 K/uL 11/23/2012 7:56 PM CDT [facility] [place] RBC 4.67 4.63 - 6.08 M/uL 11/23/2012 7:56 PM CDT [facility] [place] HEMOGLOBIN 14.8 13.7 - 17.5 g/dL 11/23/2012 7:56 PM CDT [facility] [place] HEMATOCRIT 43.8 40.1 - 51.0 % 11/23/2012 7:56 PM CDT [facility] [place] MCV 93.8(H) 79.0 - 92.2 fL 11/23/2012 7:56 PM CDT [facility] [place] MCH 31.7 25.7 - 32.2 pg 11/23/2012 7:56 PM CDT [facility] [place] MCHC 33.8 32.3 - 36.5 g/dL 11/23/2012 7:56 PM CDT [facility] [place] PLATELETS 190 130 - 400 K/uL 11/23/2012 7:56 PM CDT [facility] [place] MPV 12.2 10.0 - 14.8 fL 11/23/2012 7:56 PM CDT [facility] [place] RDW 13.7 11.0 - 14.5 % 11/23/2012 7:56 PM CDT [facility] [place] RDW-STDEV 45.4 37.0 - 54.0 fL 11/23/2012 7:56 PM CDT [facility] [place] Blood specimen (specimen) 11/23/2012 1:50 PM CDT 11/23/2012 1:50 PM CDT us External Provider Mtnv HEMATOLOGY ORDERABLES Fin al Result [facility] CLIA # [id number] [address] [place] [address] 38485 * TSH (11/23/2012 1:50 PM CDT) Pathologist [facility] TSH 1.55 0.30 - 4.80 uIU/mL 11/24/2012 9:52 AM CDT [facility] Blood specimen (specimen) 11/23/2012 1:50 PM CDT 11/23/2012 1:50 PM CDT External Provider Mtnv CHEMISTRY ORDERABLES Mary Grace l Result Performing Organization Address [facility] Co de Phone Number [facility] CLIA # [id number] [address] [place] [address] 77081 * HEMOGLOBIN A1C (11/23/2012 1:50 PM CDT) Pathologist [facility] HEMOGLOBIN A1C 5.8 4.5 - 6.2 % 11/25/2012 10:31 AM CDT [facility] EST. AVG GLUCOSE, A1C 120 mg/dL 11/25/2012 10:31 AM CDT [facility] Blood specimen (specimen) 11/23/2012 1:50 PM CDT 11/23/2012 1:50 PM CDT us External Provider Mtnv CHEMISTRY ORDERABLES Mary Grace l Result Performing Organization Address City/[facility]/ZIP Co de Phone Number [facility] CLIA # [id number] [address] [place] [address] 71734 * (ABNORMAL) LIPID PANEL (11/23/2012 1:50 PM CDT) Pathologist [facility] CHOLESTEROL 264(H) 130 - 200 mg/dL 11/23/2012 11:31 PM CDT [facility] TRIGLYCERIDE 96 30 - 200 mg/dL 11/23/2012 11:[address] [facility] HDL 56 35 - 80 mg/dL 11/23/2012 11:31 PM CDT [facility] LDL CALCULATED 189(H) 0 - 100 mg/dL 11/23/2012 11:31 PM T [facility] Blood specimen (specimen) 11/23/2012 1:50 PM CDT 11/23/2012 1:50 PM CDT Narrative [facility] - 11/23/2012 11:31 PM CDT TOTAL CHOLESTEROL [...] Mtnv CHEMISTRY ORDERABLES Mary Grace l Result [facility] CLIA # [id number] [address] [facility] [address] [place] [address] documented in this encounter Visit Diagnoses Not on filedocumented in this encounter
--- OUTSIDE RECORDS SUMMARY | 2025-04-10 07:59 | XMS_ITS | Clinical Summary ---
Author Organization [facility] Address [address] Attn: Epic Prelude ADT WILLEM AREVALO [address] Care Team Providers Care Monotype Operator Name Role Phone Unavailable Primary Care Provider Unavailabl e Allergies No known active allergies Medications No known medications Active Problems Problem Noted Date Diagnosed Date NSTEMI (non-ST elevated myocardial infarction) 0 04/09/2025 Encounters Date Type Department Care Team Description 04/09/2025 9:56 AM CDT - 04/09/2025 3:56 PM CDT Emergency [facility] Emergency Medicine [address] [place] [id number] Rivka Sheppard MD NSTEMI (non-ST elevated myocardial [...] on file 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 Narrative Rivka Sheppard MD - 04/09/2025 12:23 PM CDT Rivka Sheppard MD 04/09/2025 1:34 PM EKG 12-LEAD Date/Time: 04/09/2025 12:23 PM Performed by: Rivka Sheppard MD Authorized by: Rivka Sheppard MD ECG interpreted by ED Physician in the absence of a loading machine operator helper: yes Rate: ECG rate: 62 ECG rate assessment: age appropriate Rhythm: Rhythm Origin: sinus [place]: QRS axis: Left Intervals: normal QRSTT: QRSTT changes: Yes Comments: Changes now in lead III, aVF and lead V6 with T wave inversions. No ST segment elevation or depression. Rivka Sheppard MD ECG ORDERABLES Final Result * (ABNORMAL) TROPONIN 2 HR, 5TH GEN (04/09/2025 11:39 AM CDT) TROPONIN T, 2 HR 5TH GEN 28(H) <=15 ng/L 04/09/2025 12:07 PM CDT [facility] DELTA 2HR TROPONIN T 15(HH) See Interp. 04/09/2025 12:07 PM CDT [facility] Blood BLOOD SPECIMEN / Unknown Collection / Unknown 04/09/2025 11:39 AM CDT 04/09/2025 11:44 AM CDT Narrative [facility] - 04/09/2025 12:07 PM CDT Troponin elevated. Delay in collection of timed specimen beyond recommended collection interval. Results must be interpreted in clinical context. Delta significant change. us Rivka Sheppard MD CHEMISTRY ORDERABLES Final Resu lt [facility] CLIA # [id number] [address] [place] [address] 24398 * XR CHEST PA OR AP 1 [...] 13 <=15 ng/L 04/09/2025 10:31 AM CDT [facility] Blood Collection / Unknown 04/09/2025 10:00 AM CDT 04/09/2025 10:14 AM CDT Narrative [facility] - 04/09/2025 10:31 AM CDT Troponin Detectable but normal range. us Rivka Sheppard MD CHEMISTRY ORDERABLES Final Resu lt [facility] CLIA # [id number] [address] [place] [address] 28945 * LACTIC ACID (04/09/2025 10:00 AM CDT) LACTIC ACID 1.3 <=2.0 mmol/L 04/09/2025 10:28 AM CDT [facility] Blood BLOOD SPECIMEN / Unknown Collection / Unknown 04/09/2025 10:00 AM CDT 04/09/2025 10:14 AM CDT us Rivka Sheppard MD CHEMISTRY ORDERABLES Final Resu lt [facility] CLIA # [id number] [address] [place] [address]999 * (ABNORMAL) CBC WITH DIFFERENTIAL (04/09/2025 10:00 AM CDT) WBC 6.7 4.2 - 9.1 K/uL 04/09/2025 10:18 AM CDT [facility] RBC 4.61(L) 4.63 - 6.08 M/uL 04/09/2025 10:18 AM CDT [facility] HEMOGLOBIN 14.8 13.7 - 17.5 g/dL 04/09/2025 10:18 AM CDT [facility] HEMATOCRIT 42.1 40.1 - 51.0 % 04/09/2025 10:18 AM [facility] MCV 91.3 79.0 - 92.2 fL 04/09/2025 10:18 AM [facility] MCH 32.1 25.7 - 32.2 pg 04/09/2025 10:18 AM [facility] MCHC 35.2 32.3 - 36.5 g/dL 04/09/2025 10:18 AM [facility] RDW 12.5 11.0 - 14.5 % 04/09/2025 10:18 AM [facility] RDW-STDEV 41.8 36.9 - 56.9 fL 04/09/2025 10:18 AM [facility] PLATELETS 142 130 - 400 K/uL 04/09/2025 10:18 AM [facility] MPV 10.6 10.0 - 14.8 fL 04/09/2025 10:18 AM [facility] NEUTROPHILS 62 34 - 68 % 04/09/2025 10:18 AM [facility] LYMPHOCYTES 25 22 - 53 % 04/09/2025 10:18 AM [facility] MONOCYTES 11 5 - 12 % 04/09/2025 10:18 AM [facility] EOSINOPHILS 2 1 - 7 % 04/09/2025 10:18 AM [facility] BASOPHILS 1 0 - 1 % 04/09/2025 10:18 AM [facility] IMMATURE GRANULOCYTES 0 % 04/09/2025 10:18 AM [facility] NEUTROPHIL ABSOLUTE 4.12 1.78 - 5.38 K/uL 04/09/2025 10:18 AM [facility] LYMPHOCYTE ABSOLUTE 1.64 1.20 - 3.40 K/uL 04/09/2025 10:18 AM [facility] MONOCYTE ABSOLUTE 0.71 0.30 - 0.82 K/uL 04/09/2025 10:18 AM [facility] EOSINOPHIL ABSOLUTE 0.13 0.04 - 0.54 K/uL 04/09/2025 10:18 AM CDT [facility] BASOPHILS ABSOLUTE 0.06 0.01 - 0.08 K/uL 04/09/2025 10:18 AM CDT [facility] IMMATURE GRANULOCYTES ABSOLUTE 0.03 K/uL 04/09/2025 10:18 AM CDT [facility] Blood Collection / Unknown 04/09/2025 10:00 AM CDT 04/09/2025 10:14 AM CDT us Rivka Sheppard MD HEMATOLOGY ORDERABLES Final Res ult Performing Organization Address City/[facility]/ZIP Co de Phone Number [id number] [address] [place] [address] * SEDIMENTATION RATE (04/09/2025 10:00 AM CDT) ESR (SEDIMENTATION RATE) 6 0 - 20 mm/Hr 04/09/2025 10:29 AM CDT [facility] Blood Collection / Unknown 04/09/2025 10:00 AM CDT 04/09/2025 10:14 AM CDT Narrative [facility] - 04/09/2025 10:29 AM CDT Tube Lot: [id number] Exp Date: 07/15/2026 QC1 LOT [id number] EXP.07/20/2025 QC2 LOT [id number] EXP.07/20/2025 us Rivka Sheppard MD HEMATOLOGY ORDERABLES Final Res ult [facility] CLIA # [id number] [address] [place] [address] 88452 * PROTIME-INR (04/09/2025 10:00 AM CDT) PROTIME 13.1 12.1 - 14.3 Seconds 04/09/2025 12:33 PM CDT [facility] Comment:This is a corrected result. Previous result was 17.8 Seconds on 04/09/2025 at 1140 CDT INR 1.0 0.9 - 1.1 04/09/2025 12:33 PM CDT [facility] Comment:This is a corrected result. Previous result was 1.5 on 04/09/2025 at 1140 CDT Blood Collection / Unknown 04/09/2025 10:00 AM CDT 04/09/2025 10:14 AM CDT [facility] - 04/09/2025 12:33 PM CDT Called corrected report to Dr Sheppard @ 12:31 on 04-09-25.cjb us Rivka Sheppard MD HEMATOLOGY ORDERABLES Edited Re sult - Final [facility] CLIA # [id number] [address] [place] [address] 63067 * (ABNORMAL) D-DIMER (04/09/2025 10:00 AM CDT) D-DIMER QUANT 0.91(H) <0.50 ug/mL FEU 04/09/2025 10:28 AM CDT [facility] Blood Collection / Unknown 04/09/2025 10:00 AM CDT 04/09/2025 10:14 AM CDT [facility] - 04/09/2025 10:28 AM CDT D-Dimer assay [...] ORDERABLES Final Res ult Performing Organization Address [facility]/ZIP Co de Phone Number [facility] CLIA # [id number] [address] [place] [address]94 * C-REACTIVE PROTEIN (04/09/2025 10:00 AM CDT) CRP <3.0 <5.0 mg/L 04/09/2025 10:38 AM CDT [facility] Blood Collection / Unknown 04/09/2025 10:00 AM CDT 04/09/2025 10:14 AM CDT us Rivka Sheppard MD CHEMISTRY ORDERABLES Final Resu lt Performing Organization Address [facility] Co de Phone Number [facility] CLIA # [id number] [address] [place] [address] 37134 * TSH (04/09/2025 10:00 AM CDT) TSH 1.96 0.27 - 4.20 uIU/mL 04/09/2025 10:38 AM CDT [facility] Blood Collection / Unknown 04/09/2025 10:00 AM CDT 04/09/2025 10:14 AM CDT Result Mo Sheppard MD CHEMISTRY ORDERABLES Final Resu lt Performing Organization Address City/[facility]/ZIP Co de Phone Number [facility] CLIA # [id number] [address] [place] [address]473 * BRAIN NATRIURETIC PEPTIDE, BNP OR PROBNP (04/09/2025 10:00 AM CDT) PROBNP, N TERMINAL 95 0 - 125 pg/mL 04/09/2025 10:31 AM CDT [facility] Comment: INTERPRETIVE COMMENT based on diagnosis: Diagnostic [...] ORDERABLES Final Resu lt Performing Organization Address [facility] Phone Number [id number] [address] [place] [address] * MAGNESIUM LEVEL (04/09/2025 10:00 AM CDT) MAGNESIUM 2.0 1.6 - 2.4 mg/dL 04/09/2025 10:38 AM CDT [facility] Blood Collection / Unknown 04/09/2025 10:00 AM CDT 04/09/2025 10:14 AM CDT us Rivka Sheppard MD CHEMISTRY ORDERABLES Final Resu lt Performing Organization Address [facility] Co de Phone Number [facility] CLIA # [id number] [address] [place] [address] 78588 * LIPASE (04/09/2025 10:00 AM CDT) LIPASE 60 13 - 60 U/L 04/09/2025 10:38 AM CDT [facility] Blood Collection / Unknown 04/09/2025 10:00 AM CDT 04/09/2025 10:14 AM CDT us Rivka Sheppard MD CHEMISTRY ORDERABLES Final Resu lt Performing Organization Address [facility] de Phone Number [facility] CLIA # [id number] [address] [place] [address] [phone] * (ABNORMAL) COMPREHENSIVE METABOLIC PANEL (04/09/2025 10:00 AM CDT) SODIUM 139 136 - 145 mmol/L 04/09/2025 10:38 AM [facility] POTASSIUM 3.9 3.5 - 5.1 mmol/L 04/09/2025 10:38 AM [facility] CHLORIDE 101 98 - 107 mmol/L 04/09/2025 10:38 AM [facility] CO2 25 22 - 29 mmol/L 04/09/2025 10:38 AM [facility] CALCIUM 9.7 8.8 - 10.2 mg/dL 04/09/2025 10:38 AM [facility] BUN 16 8 - 23 mg/dL 04/09/2025 10:38 AM [facility] CREATININE 0.85 0.67 - 1.17 mg/dL 04/09/2025 10:38 AM [facility] GLUCOSE 137(H) 74 - 99 mg/dL 04/09/2025 10:38 AM [facility] TOTAL PROTEIN 7.7 6.6 - 8.7 g/dL 04/09/2025 10:38 AM [facility] ALBUMIN 4.6 3.5 - 5.2 g/dL 04/09/2025 10:38 AM [facility] BILIRUBIN TOTAL 0.8 0.0 - 1.2 mg/dL 04/09/2025 10:38 AM [facility] ALKALINE PHOSPHATASE 81 40 - 129 U/L 04/09/2025 10:38 AM [facility] AST 78(H) 0 - 50 U/L 04/09/2025 10:38 AM [facility] ALT 77(H) 0 - 50 U/L 04/09/2025 10:38 AM [facility] GFR >60 >=60 mL/min/1.7 3 sq meter 04/09/2025 10:38 AM CDT [facility] Comment:eGFR calculated with 2020 CKD-EPI equation. Vegetarian diet, extremely high or low muscle mass, and may affect results. Cystatin C with Glomerular Filtration Rate is a suitable alternative for these patients. ANION GAP 13 5 - 20 mmol/L 04/09/2025 10:38 AM CDT [facility] Blood Collection / Unknown 04/09/2025 10:00 AM CDT 04/09/2025 10:14 AM CDT us Rivka Sheppard MD CHEMISTRY ORDERABLES Final Resu lt Performing Organization Address [facility]/ZIP Co de Phone Number [facility] CLIA # [id number] [address] [place] [address] 65548 * HEMOGLOBIN A1C (04/05/2018 7:35 AM CDT) HEMOGLOBIN A1C 5.5 4.8 - 5.9 % 04/05/2018 11:23 AM CDT [facility] EST. AVG GLUCOSE, A1C 111 mg/dL 04/05/2018 11:23 AM CDT [facility] Blood Collection / Unknown 04/05/2018 7:35 AM CDT 04/05/2018 9:22 AM CDT Narrative [facility] - 04/05/2018 11:23 AM CDT HGB A1C INTERPRETATION NORMAL: <5.7% PRE-DIABETES: 5.7 - 6.4% DIABETES: 6.5% OR GREATER us Reyna Alamo MD CHEMISTRY ORDERABLES F inal Result Performing Organization Address City/[facility]/ZIP Co de Phone Number [facility] CLIA # [id number] [address] [place] [address] [facility] CLIA # [id number] [address] [place] [address] 34296 from Last 3 Months or Most Recently Relevant to Health Maintenance Insurance MEDICARE PART A AND B
[2025-04-10 10:05] LABS: Partial Thromboplastin Time 74.1 SECONDS (23.9-36.7)
--- NOTE | 2025-04-10 11:46 | P.CONIM_ITS ---
<Statement entered by Claudia Aggarwal MD - 04/12/25 22:54> Patient was evaluated and cared for in conjunction with an advanced practice practitioner. I personally examined the patient and reviewed the chart and all pertinent data including imaging, telemetry, and laboratory results. I discussed the patient in detail with the advanced practice practitioner. Please see their note for complete H&P testing result and agreed upon plan of care for the patient. Providers/Reason For Consult 2 Consulting Physician/Specialty*: Dr Ronnie Aggarwal, interventional cardiology. Reason for Consult*: Chest pain Requesting Physician: Yousif Packer MD Attending Physician: Yousif Packer MD Primary Care Provider: Leeroy Alvarez MD History of Present Illness History of Present Illness Tyler Miranda is a 60 year old male with no history of coronary artery disease, hypertension, diabetes, is not a smoker. He presented to [facility] yesterday for chest pain treated for NSTEMI started on heparin infusion awaiting transfer here when he left that facility AMA. He came to the emergency room here by private vehicle, apparently did not want to take an ambulance. EKG showed sinus rhythm with occasional PVCs, nonspecific T wave changes, no STEMI. No previous EKGs to compare. He was evaluated with stress test this morning, revealing small to medium sized fixed defect in the inferior wall with possible partial reversibility versus attenuation artifact. Stress LVEF 48%. Echocardiogram is pending read. Troponin series: 75->70->62. BNP mildly elevated 170, AST 53, ALT 59. LDL-C 163, total cholesterol 267. Other laboratory unremarkable. Review of Systems 2 Const: Denies: fever(s), chills, change in weight, fatigue or diaphoresis Eyes: Denies: change in vision ENMT: Denies: epistaxis Card: Denies: chest pain, palpitations, irregular heart rhythm, edema, syncope, pre-syncope, dyspnea on exertion, orthopnea or leg pain with exertion Resp: Denies: dyspnea, productive cough or wheezing GI: Denies: nausea, vomiting, hematemesis, hematochezia or melena : Denies: hematuria Musc: Denies: extremity swelling David/Lymph: Denies: easy bruising or easy bleeding Medications/Allergies Home Medications ?Medication ?Instructions ?Recorded ?Confirmed ?Last Taken ?Type hydrocodone 5 mg-acetaminophen 325 1 tab PO Q6H PRN Pa in 02/05/21 04/09/25 02/05/21 History mg tablet Allergies Allergy/AdvReac Type Severity Reaction Status Date / Time No Known Allergies Allergy Verified 02/05/21 08:27 Current Medications Generic Name Dose Route Start Last Admin Trade Name Zaid PRN Reason Stop Dose Admin Aspirin 81 mg 04/10/25 09:00 04/10/25 08:53 Aspirin 81 Mg Ec Tablet PO 81 mg DAILY CAMERON Administration Atorvastatin Calcium 80 mg 04/09/25 21:00 04/09/25 20:34 Atorvastatin 40 Mg Tablet PO 80 mg BEDTIME CAMERON Administration Carvedilol 3.125 mg 04/09/25 19:31 04/10/25 08:58 Carvedilol 3.125 Mg Tablet PO Not Given BID CAMERON Heparin Sodium/Sodium Chloride 25,000 unit in 500 mls @ 0 mls/hr 04/09/25 17:45 04/10/25 10:24 Heparin Drip IV 11.19 unit/kg/hr CONT CAMERON 20 mls/hr Protocol Titration Per Protocol Pantoprazole Sodium 40 mg 04/09/25 19:31 04/09/25 20:34 Pantoprazole 40 Mg Sdv IVP 40 mg Q24H CAMERON Administration PFSH Acute 2 PFSH: Medical History (Updated 04/09/25 @ 17:55 by Yousif Packer MD) No pertinent past medical history Family History (Updated 04/09/25 @ 17:55 by Yousif Packer MD) Father CAD (coronary artery disease) Mother CAD (coronary artery disease) Social History (Updated 04/09/25 @ 17:56 by Yousif Packer MD) Smoking and tobacco/nicotine status: never used tobacco/nicotine Alcohol intake: never Substance/Drug Use: never Vitals/I&O/Wt Last Vital Signs Temp 97.9 F 04/10/25 08:00 Pulse 65 04/10/25 08:00 Resp 18 04/10/25 08:00 BP 146/86 04/10/25 08:00 Pulse Ox 97 04/10/25 08:00 O2 Del Method Room Air 04/10/25 08:00 04/09/25 04/10/25 04/10/25 22:59 06:59 14:59 Intake Total 800 / 973.333 173.333 / 973.333 406.667 / 406.667 Balance 800 / 973.333 173.333 / 973.333 406.667 / 406.667 Weight last 48 hrs Weight 191 lb 9.6 oz Weight 192 lb 1.6 oz Weight 197 lb Physical Exam 2 Const: COMMON NORMALS: no acute distress and patient oriented x3 GENERAL APPEARANCE: cooperative and comfortable ORIENTATION/CONSCIOUSNESS: Yes awake, Yes oriented to person, Yes oriented to place and Yes oriented to time Chest: COMMONS NORMALS: normal inspection of the chest and normal palpation of entire chest wall CHEST: Yes Symmetrical chest wall rise Resp: COMMON NORMALS: normal respiratory effort, No retractions, No use of accessory muscles and clear to auscultation bilaterally EFFORT & INSPECTION: Yes symmetric chest movement AUSCULTATION: clear to auscultation bilaterally Cardio: COMMON NORMALS: regular rate, regular rhythm, S1 normal heart sound present, S2 normal heart sound present, No gallops present (Cardio), No clicks present (Cardio), No murmurs present (Cardio) and No rub (Cardio) RATE: r egular rate RHYTHM: regular rhythm HEART SOUNDS: S1 normal heart sound present and S2 normal heart sound present PERIPHERAL PULSES: radial pulses present Extremity: COMMON NORMALS: no pedal edema Neuro: COMMON NORMALS: patient oriented x3 and moves all extremities S ENSORIUM/ORIENTATION: Yes oriented to person, Yes oriented to place and Yes oriented to time Data 04/10/25 00:51 04/10/25 00:51 A&P Assessment and plan 1. Chest pain: Plan: Stress test felt to be attenuation artifact as there was no ischemia on prone imaging. Will start him on rosuvastatin 20mg daily, baby aspirin, as his LDL-C was 163. May discharge home since he has not had any further chest pain. Follow up in [address] Aggarwal. PDMP PDMP Reviewed: Not Reviewed Coding Level of Care Code Acute Code for [facility] Fwd Diagnoses Chest pain R07.9
--- NOTE | 2025-04-10 13:31 | P.PN_ITS ---
Subjective 2 Subjective: Patient was seen this morning, currently alert oriented x 3, following all commands, completed stress test, he felt some discomfort during the cardiac stress test, but no active chest pain Vitals/I&O/Wt Last Vital Signs Temp 97.6 F 04/10/25 12:26 Pulse 65 04/10/25 12:26 Resp 16 04/10/25 12:26 BP 141/82 04/10/25 12:26 Pulse Ox 91 04/10/25 12:26 O2 Del Method Room Air 04/10/25 12:26 04/09/25 04/10/25 04/10/25 22:59 06:59 14:59 Intake Total 800 / 800 173.333 / 973.333 526.667 / 526.667 Balance 800 / 800 173.333 / 973.333 526.667 / 526.667 Weight last 48 hrs Weight 86.908 kg Weight 87.135 kg Weight 89.358 kg Physical Exam 2 Const: COMMON NORMALS: no acute distress and patient oriented x3 Resp: COMMON NORMALS: normal respiratory effort, No retractions, No use of accessory muscles and clear to auscultation bilaterally AUSCULTATION: clear to auscultation bilaterally Cardio: COMMON NORMALS: regular rate, regular rhythm, S1 normal heart sound present and S2 normal heart sound present RATE: regular rate RHYTHM: r egular rhythm HEART SOUNDS: S1 normal heart sound present and S2 normal heart sound present GI: COMMON NORMALS: Normal to inspection, nondistended, normoactive bowel sounds present and non-tender Extremity: COMMON NORMALS: no calf tenderness and no pedal edema Neuro: COMMON NORMALS: patient oriented x3 Psych: COMMON NORMALS: mental status grossly normal Data 04/10/25 00:51 04/10/25 00:51 A&P Assessment and plan 1. Chest pain: Plan: - Chest pain - Serial EKGs, short troponins, telemetry monitoring - aspirin 81 mg daily - Atorvastatin - Coreg - Heparin drip - Nitro as needed for chest pain - Cardiac echo pending - Stress test pending - Full code - Heparin drip for DVT prophylaxis Transaminitis, potentially related to liver disease, will need to follow-up with primary care provider as outpatient Acute on chronic thrombocytopenia, will need to follow-up with primary care provider as outpatient PDMP PDMP Reviewed: Not Reviewed Attestations 2 Medical Necessity Statement*: Patient requires hospitalization, inpatient, greater than 2 midnights, for chest pain, NSTEMI Diagnoses Chest pain R07.9
--- NOTE | 2025-04-10 15:47 | P.DS_ITS ---
Discharge Providers Date of Admission: 04/09/25 19:31 Date of Discharge: April 10, 2025 Attending Provider at Admission: Yousif Packer MD Attending Provider at Discharge: Yousif Packer MD Primary Care Provider: Leeroy Alvarez MD Diagnoses at Discharge Discharge Diagnosis 1. Chest pain: Reason for Visit Reason for Visit: chest pains Hospital Course Hospital Course Tyler Miranda is a 60 year old male with no significant past medical history, who presents [facility] for chest pain. Patient was at [facility], where he had presented for chest pain, he was told he received aspirin, there was EKG changes and a positive delta troponin, he was started on a heparin drip, and was awaiting transfer to [facility] where he left AGAINST MEDICAL ADVICE. Currently he is seen in the emergency room chest pain- free, does report substernal chest pain, fatigue, malaise, does report intermittent shortness of breath, no lightheadedness, no dizziness, no nausea, no vomiting. His initial EKG does not show any acute ST-T wave changes, his blood work currently is pending, troponin pending, he has been started on a heparin drip Patient was admitted to [facility] for chest pain -Management aspirin, statin, Coreg, stress test IMPRESSIONS 1. Small to medium sized inferior wall defect consistent with infarct with a small amount of ischemia versus diaphragmatic attenuation artifact. 2. Mildly reduced left ventricular systolic function with an EF of 48%. - Cardiology consulted - Recommended medical management - Will be discharged on aspirin, statin, Coreg with a close follow-up with primary care provider as outpatient - If any recurrent chest pain go to the emergency room For patient's transaminitis, thrombocytopenia - Will have patient follow-up with primary care provider Physical Exam Const: COMMON NORMALS: no acute distress and patient oriented x3 Resp: COMMON NORMALS: normal respiratory effort, No retractions, No use of accessory muscles and clear to auscultation bilaterally AUSCULTATION: clear to auscultation bilaterally Cardio: COMMON NORMALS: regular rate, regular rhythm, S1 normal heart sound present and S2 normal heart sound present RATE: regular rate RHYTHM: regular rhythm HEART SOUNDS: S1 normal heart sound present and S2 normal heart sound present GI: COMMON NORMALS: Normal to inspection, nondistended, normoactive bowel sounds present and non-tender Extremity: COMMON NORMALS: no pedal edema Neuro: COMMON NORMALS: patient oriented x3 Psych: COMMON NORMALS: mental status grossly normal Discharge Data Studies Completed and Pending Completed Studies During Hospitalization Category Date Time Status Sestamibi Stress Test Request Routine Exams 04/09/25 19:31 Completed NM bela perf SPECT r/s* [id number] Routine Nuc Med 04/10/25 19:31 Completed Pending at discharge Category Date Time Status PTT [Partial Thromboplastin Time] Timed Lab 04/10/25 15:23 Received Platelet Count Q2D Lab 04/11/25 04:00 Ordered Platelet Count Q2D Lab 04/13/25 04:00 Ordered CV. echo complete* [id number] Stat Ultrasound 04/10/25 17:52 Taken Laboratory Results WBC 5.26 10^3/uL (3.29-11.43) 04/10/25 00:51 RBC 4.19 10^6/uL (3.85-5.65) 04/10/25 00:51 Hgb 13.20 g/dL (11.27-16.99) 04/10/25 00:51 Hct 39.5 % (37-53) 04/10/25 00:51 MCV 94.3 fl (82-101) 04/10/25 00:51 MCH 31.5 pg (27-33) 04/10/25 00:51 MCHC 33.4 g/dL (30-55) 04/10/25 00:51 RDW 12.5 % (12.1-15.1) 04/10/25 00:51 Plt Count 119 10^3/cmm (157-399) L 04/10/25 00:51 MPV 10.9 fL (7.4-10.4) H 04/10/25 00:51 Neut % (Auto) 48.5 % 04/10/25 00:51 Lymph % (Auto) 34.6 % 04/10/25 00:51 [place] % (Auto) 12.7 % 04/10/25 00:51 Eos % (Auto) 3.0 % 04/10/25 00:51 Baso % (Auto) 0.6 % 04/10/25 00:51 Neut # (Auto) 2.55 10^3/uL (1.8-7.7) 04/10/25 00:51 Lymph # (Auto) 1.8 10^3/uL (0.8-4.8) 04/10/25 00:51 [place] # (Auto) 0.7 10^3/uL (0.2-0.9) 04/10/25 00:51 Eos # (Auto) 0.2 10^3/uL (0.0-0.8) 04/10/25 00:51 Baso # (Auto) 0.0 10^3/uL (0.0-0.1) 04/10/25 00:51 Nucleated RBC % (auto) 0 % 04/10/25 00:51 Nucleated RBCs # 0.0 /100WBC 04/10/25 00:51 APTT 74.1 SECONDS (23.9-36.7) H 04/10/25 08:59 Sodium 139 mmol/L (136-145) 04/10/25 00:51 Potassium 3.6 mmol/L (3.5-5.1) 04/10/25 00:51 Chloride 104 mmol/L (98-107) 04/10/25 00:51 Carbon Dioxide 25 mmol/L (22-29) 04/10/25 00:51 Anion Gap 13.6 (5-19) 04/10/25 00:51 BUN 17 mg/dL (8-23) 04/10/25 00:51 Creatinine 0.7 mg/dL (0.7-1.2) 04/10/25 00:51 GFR Calculation 114.6 mL/min (90-130) 04/10/25 00:51 Glucose 130 mg/dL (65-115) H 04/10/25 00:51 Estimat Average Glucose 117 04/09/25 17:07 Hemoglobin A1c 5.7 % (4.0-6.0) 04/09/25 17:07 Calculated Osmolality 291 mOsm/kg (285-295) 04/10/25 00:51 Calcium 8.7 mg/dL (8.5-10.5) 04/10/25 00:51 Total Bilirubin 0.7 mg/dL (0.15-1.2) 04/09/25 17:07 AST 53 U/L (0-40) H 04/09/25 17:07 ALT 59 U/L (0-41) H 04/09/25 17:07 Alkaline Phosphatase 77 U/L (40-130) 04/09/25 17:07 Troponin T Baseline 75 ng/L (0-15) H 04/09/25 17:07 Troponin T 120 Minute 70.46 ng/L (0-15) H 04/09/25 18:54 Delta Troponin T -4.54 ABS# (0-10) L 04/09/25 18:54 Troponin T Hi Sens 6Hr 62.12 ng/L (0-15) H 04/09/25 22:30 Troponin T Hi Sens 6Hr Delta -12.88 ng/L (0-12) L 04/09/25 22:30 NT-Pro-B Natriuret Pep 170 pg/mL (0-125) H 04/09/25 17:07 Total Protein 6.9 g/dL (6.6-8.7) 04/09/25 17:07 Albumin 4.3 g/dL (3.5-5.2) 04/09/25 17:07 Globulin 2.6 g/dL (1.3-4.6) 04/09/25 17:07 Triglycerides 90 mg/dL (0-150) 04/09/25 17:07 Cholesterol 267 mg/dL (0-200) H 04/09/25 17:07 LDL Cholesterol, Calc 163 mg/dL (50-129) H 04/09/25 17:07 HDL Cholesterol 86 mg/dL (60-100) 04/09/25 17:07 LDL/HDL Ratio 1.90 RATIO (0.00-3.22) 04/09/25 17:07 Cholesterol/HDL Ratio 3.10 mg/dL (1.0-5.00) 04/09/25 17:07 TSH 3.10 uIU/mL (0.27-4.20) 04/09/25 17:07 Vitals Last Vital Signs Temp 97.6 F 04/10/25 12:26 Pulse 79 04/10/25 14:00 Resp 16 04/10/25 12:26 BP 141/82 04/10/25 12:26 Pulse Ox 91 04/10/25 12:26 O2 Del Method Room Air 04/10/25 12:26 Discharge Plan Discharge Patient Disposition: Home Condition: Stable Prescriptions: New aspirin 81 mg Tablet,Delayed Release (Dr/Ec) 81 mg PO DAILY 30 Days Qty: 30 0RF nitroglycerin 0.4 mg Tablet, Sublingual 0.4 mg sublingual Q5M PRN (Reason: Chest Pain) 30 Days Qty: 30 0RF atorvastatin 40 mg Tablet 80 mg PO BEDTIME 30 Days Qty: 30 0RF carvedilol 3.125 mg Tablet 3.125 mg PO BID 30 Days Qty: 60 0RF Continued hydrocodone-acetaminophen 5-325 mg Tablet 1 tab PO Q6H PRN (Reason: Pain) Rx Instructions: SEE PHARMACY COMMENT Referrals: Enoch Gao MD [Physician, Cardiology] - 1-3 days Referral Note: We have notified your physician's clinic of the need for a follow-up appointment to be scheduled. If you have not heard from them within the next 2 business days, please call them directly. Emilio Salinas DO [Referring, [facility]] - 04/13/25 9:45 am Discharge Diet: Cardiac Discharge Activity: Resume usual activity Patient Instructions: Opioid Safety, Patient Portal & Vikram Instructions Activity Restrictions/Additional Instructions: - Please follow-up with primary care provider in 1 week - Please follow-up with cardiology - If any chest pain please go to the emergency room - For your liver function abnormality, and/or thrombocytopenia avoid alcohol, follow-up with primary care provider for further workup Discharge Attestations Time Spent in Discharge Care*: greater than 30 min Quality Metrics Clinical Quality Measures [ No reported AMI, CVA or VTE this stay] Coding Level of Care Code 69582 Total time (in minutes) for Discharge: 45 Diagnoses Chest pain R07.9
[2025-04-10 15:48] LABS: Partial Thromboplastin Time 63.8 SECONDS (23.9-36.7)
--- NOTE | 2025-04-10 19:31 | NMCV_ITS ---
NM bela perf SPECT r/s* [id number] Tyler Miranda Age: 60 Gender: M : 1965 Exam Date: 04/10/2025 06:47 Ordering Phys: Yousif Packer MD Technologist: TORREY Wilcox Exam Location: [facility] Indications: CP STRESS TEST Please see separate stress test report in [facility] for full findings IMAGE PROTOCOL Rest/Stress 1 Lexiscan Day Radiopharmaceutical Dose (mCi) Administration Site Administered by Rest: Tc-99m 10.7 IV TORREY Berry Sestamibi Stress:Tc-99m 32.5 IV TORREY Wilcox Sestamijona Rest: 10-Apr-2025 60 Discovery 630 Stress: 10-Apr-2025 30 Discovery 630 0.4mg Lexiscan. Images obtained in supine and prone position. SPECT RESULTS Technical Quality: Good Raw Data Analysis: Normal Image Corrections: No attenuation or motion correction applied Summed Stress Score: 1 Summed Rest Score: 3 Summed Difference Score: 1 PERFUSION FINDINGS Small to medium sized, fixed, mildly reduced tracer counts in the inferior wall with partial reversibility on the resting images. Myocardial perfusion imaging consistent with infarct with a small amount of ischemia versus diaphragmatic attenuation artifact. FUNCTIONAL RESULTS (calculated via Gated SPECT) Stress Image LV EF (%): 48 Stress EDV (mL):147 TID: 1.02 Stress ESV (mL):76 FUNCTIONAL FINDINGS: Mildly reduced left ventricular systolic function with an EF of 48%. IMPRESSIONS 1. Small to medium sized inferior wall defect consistent with infarct with a small amount of ischemia versus diaphragmatic attenuation artifact. 2. Mildly reduced left ventricular systolic function with an EF of 48%. Enoch Gao MD, FACC (Electronically Signed) Final Date: 10 April 2025 10:42 S
== END 2025-04-10 16:05 | disposition home or self-care (01) ==
LOC: ER 17:41 → CSU 18:06
PROVIDERS: Admitting Provider Family Medicine; Emergency Provider Emergency Medicine; PCP Thoracic Surgery (Cardiothoracic Vascular Surgery); Visit Provider Family Medicine
DX: R07.9 Chest pain, unspecified (principal); Z82.49 Family history of ischemic heart disease and other diseases of the circulatory system
CPT/HCPCS: 36415; 78452; 80048; 80053; 80061; 83036; 83880; 84443; 84484; 85025; 85730; 93005; 93017; 93306; 94664; 96365; 96366; 96375; 99285; A9500; G0378; J1644; J2470; J2785; J9999

== ENCOUNTER → 2025-05-29 08:27 | Outpatient (BNVA) | payer MEDICARE, SELFPAY | PROVIDERS: PCP Thoracic Surgery (Cardiothoracic Vascular Surgery); Visit Provider Internal Medicine Cardiovascular Disease | DX: R79.89 Other specified abnormal findings of blood chemistry (principal); E78.5 Hyperlipidemia, unspecified; I25.2 Old myocardial infarction; I21.4 Non-ST elevation (NSTEMI) myocardial infarction; R07.9 Chest pain, unspecified | CPT/HCPCS: 99214 ==